=== PATIENT | female | born 1980 | race Caucasian/White ===

== ENCOUNTER 2020-05-03 18:17 | Emergency (ER) | payer SELFPAY ==
[~2020-05-03] VITALS: Ht 167.6 cm; Wt 72.7 kg
[2020-05-03 18:58] LABS: BASOPHILS % (AUTO) 0.8 % (0.0-2.0); EOSINOPHILS % (AUTO) 1.2 % (1.0-6.0); HEMATOCRIT 40.1 % (36-46); HEMOGLOBIN 13.7 g/dL (12.0-16.0); LYMPHOCYTES # (AUTO) 1.4 K/uL (1.0-4.8); LYMPHOCYTES % (AUTO) 24.9 % (22.0-44.0); MEAN CORPUSCULAR HEMOGLOBIN 32.3 pg (26.0-34.0); MEAN CORPUSCULAR HGB CONC 34.1 G/dL (31.0-37.0); MEAN CORPUSCULAR VOLUME 95 fL (80-100); MONOCYTES # (AUTO) 0.4 K/uL (0.1-1.0); MONOCYTES % (AUTO) 7.2 % (2.0-9.0); NEUTROPHILS # (AUTO) 3.7 K/uL (1.8-7.7); NEUTROPHILS % (AUTO) 65.9 % (40.0-70.0); PLATELET COUNT (AUTO) 167 K/uL (150-450); RED BLOOD CELL COUNT(AUTO) 4.23 MIL/uL (4.00-5.20); RED CELL DISTRIBUTION WIDTH 13.4 % (11.5-14.5)
[2020-05-03 19:13] LABS: ANION GAP 6 mmol/L (8-16); CALCIUM, TOTAL 9.2 mg/dL (8.8-10.5); CARBON DIOXIDE 27 mmol/L (22-29); CHLORIDE 106 mmol/L (98-107); CREATININE 0.94 mg/dL (0.60-1.30); GLOMERULAR FILTR. RATE CALC > 60 mL/min (>60); GLUCOSE,RANDOM 106 mg/dL (70-110); POTASSIUM 3.7 mmol/L (3.5-5.1); SODIUM SERUM 139 mmol/L (136-145); UREA NITROGEN, BLOOD 17 mg/dL (7-18)
[2020-05-03 19:24] LABS: ALANINE AMINOTRANSFERASE 49 U/L (12-78); ALKALINE PHOSPHATASE 76 U/L (46-116); ASPARTATE AMINOTRANSFERASE 21 U/L (15-37); BILIRUBIN,TOTAL 0.5 mg/dL (0.1-1.0); HCG,QUANTITATIVE < 1 mIU/mL (0-6); TOTAL PROTEIN, SERUM 7.6 g/dL (6.4-8.2)
[2020-05-03 20:40] VITALS: BP 123/76
== END 2020-05-03 21:02 | disposition home or self-care (01) ==
LOC: EMS 18:17
DX: R45.1 Restlessness and agitation (principal); F19.90 Other psychoactive substance use, unspecified, uncomplicated
CPT/HCPCS: 36415; 80053; 84702; 85025; 99283; G0480

== ENCOUNTER 2022-01-10 20:00 | Inpatient (IN) | payer MEDICAID ==
[~2022-01-10] VITALS: Ht 152.4 cm; Wt 55.2 kg
[2022-01-10 20:32] LABS: BASOPHILS % (AUTO) 1.5 % (0.0-2.0); EOSINOPHILS % (AUTO) 1.2 % (1.0-6.0); HEMATOCRIT 37.3 % (36-46); LYMPHOCYTES # (AUTO) 1.3 K/uL (1.0-4.8); LYMPHOCYTES % (AUTO) 22.6 % (22.0-44.0); MEAN CORPUSCULAR HEMOGLOBIN 32.2 pg (26.0-34.0); MEAN CORPUSCULAR HGB CONC 34.8 G/dL (31.0-37.0); MEAN CORPUSCULAR VOLUME 92 fL (80-100); MONOCYTES # (AUTO) 0.5 K/uL (0.1-1.0); NEUTROPHILS # (AUTO) 3.9 K/uL (1.8-7.7); NEUTROPHILS % (AUTO) 66.7 % (40.0-70.0); PLATELET COUNT (AUTO) 178 K/uL (150-450); RED BLOOD CELL COUNT(AUTO) 4.04 MIL/uL (4.00-5.20)
[2022-01-10 20:41] LABS: ANION GAP 7 mmol/L (8-16); CALCIUM, TOTAL 8.4 mg/dL (8.8-10.5); CARBON DIOXIDE 27 mmol/L (22-29); CHLORIDE 105 mmol/L (98-107); GLOMERULAR FILTR. RATE CALC 39 mL/min (>60); GLUCOSE,RANDOM 93 mg/dL (70-110); POTASSIUM 3.8 mmol/L (3.5-5.1); SODIUM SERUM 139 mmol/L (136-145); UREA NITROGEN, BLOOD 15 mg/dL (7-18)
[2022-01-10 20:58] LABS: ALANINE AMINOTRANSFERASE 76 U/L (12-78); ALBUMIN 3.5 g/dL (3.4-5.0); ALKALINE PHOSPHATASE 103 U/L (46-116); ASPARTATE AMINOTRANSFERASE 37 U/L (15-37); BILIRUBIN,TOTAL 0.2 mg/dL (0.1-1.0); HCG,QUANTITATIVE < 1 mIU/mL (0-6); TOTAL PROTEIN, SERUM 6.7 g/dL (6.4-8.2)
[2022-01-10] MEDS ORDERED: ZOLPIDEM TARTRATE 10 MG TABLET PO PRN (21:45)
[2022-01-10 22:23] LABS: COVID AG,FIA SOURCE NASAL SWAB
[2022-01-10] MEDS ORDERED: SODIUM CHLORIDE 0.9% 250 ML IRRIG SOLUTION BOTTLE IRRIG ONE (22:45)
[2022-01-10] MEDS ORDERED: PERTUSS(ACELL),DIPH,TET VAC/PF 0.5 ML SYRINGE IM. ONE (22:45)
[2022-01-10] MEDS: LORazepam 2 MG TABLET PO PRN (22:49)
[2022-01-10] MEDS ORDERED: HALOPERIDOL 5 MG TABLET PO ONE (23:00)
[2022-01-10] MEDS ORDERED: DiphenhydrAMINE HCL 50 MG CAPSULE PO ONE (23:00)
[2022-01-11 00:40] VITALS: BP 105/56
[2022-01-11] MEDS: BACITRACIN 28 GM OINTMENT TP SCH ×2 (09:48→17:00)
[2022-01-11] MEDS: NICOTINE 14 MG/24 HOUR PATCH TD SCH (09:49)
[2022-01-11] MEDS: FLUoxetine HCL 20 MG CAPSULE PO SCH (11:00)
[2022-01-11] MEDS: QUEtiapine FUMARATE 25 MG TABLET PO SCH ×2 (11:00→17:10)
[2022-01-11] MEDS ORDERED: ACETAMINOPHEN 325 MG TABLET PO PRN (14:30)
[2022-01-11] MEDS ORDERED: IBUPROFEN 400 MG TABLET PO PRN (14:30)
[2022-01-11] MEDS ORDERED: DOCUSATE SODIUM 100 MG CAPSULE PO PRN (14:30)
[2022-01-11] MEDS ORDERED: MAG HYDROX/AL HYDROX/SIMETH ES 30 ML SUSPENSION UDCUP PO PRN (14:30)
[2022-01-11] MEDS ORDERED: ALBUTEROL SULFATE HFA 90 MCG/PUFF 8 GM INHALER IH PRN (14:30)
[2022-01-11] MEDS ORDERED: MAGNESIUM HYDROXIDE SUSPENSION 30 ML UDCUP PO PRN (14:30)
[2022-01-11] MEDS ORDERED: ONDANSETRON HCL 4 MG TABLET PO PRN (14:30)
[2022-01-11] MEDS ORDERED: LOPERAMIDE HCL 2 MG CAPSULE PO PRN (14:30)
[2022-01-11] MEDS ORDERED: CloNIDine HCL 0.1 MG TABLET PO PRN (14:30)
[2022-01-11] MEDS ORDERED: NICOTINE 14 MG/24 HOUR PATCH TD PRN (14:30)
[2022-01-11] MEDS ORDERED: GuaiFENesin/D-METHORPHAN [SUGAR-FREE] 200-20MG/10 ML SYRUP UDCUP PO PRN (14:30)
[2022-01-11] MEDS ORDERED: PETROLATUM,WHITE 28 GM JELLY TP PRN (14:30)
[2022-01-11] MEDS: LORazepam 2 MG TABLET PO PRN (16:15)
[2022-01-11] MEDS: HALOPERIDOL 5 MG TABLET PO PRN (16:15)
[2022-01-12] MEDS: QUEtiapine FUMARATE 25 MG TABLET PO SCH ×2 (08:13→15:59)
[2022-01-12] MEDS: FLUoxetine HCL 20 MG CAPSULE PO SCH (08:13)
[2022-01-12] MEDS: NICOTINE 14 MG/24 HOUR PATCH TD SCH (08:14)
[2022-01-12] MEDS: BACITRACIN 28 GM OINTMENT TP SCH ×2 (08:19→15:59)
[2022-01-12 16:28] VITALS: BP 91/64
[2022-01-12 18:46] VITALS: BP 98/65
[2022-01-12] MEDS: HALOPERIDOL 5 MG TABLET PO PRN (20:07)
[2022-01-13] MEDS: NICOTINE 14 MG/24 HOUR PATCH TD SCH (08:04)
[2022-01-13] MEDS: QUEtiapine FUMARATE 25 MG TABLET PO SCH ×2 (08:04→15:58)
[2022-01-13] MEDS: FLUoxetine HCL 20 MG CAPSULE PO SCH (08:04)
[2022-01-13] MEDS: BACITRACIN 28 GM OINTMENT TP SCH ×2 (08:05→15:55)
[2022-01-13 08:26] VITALS: BP 101/68
[2022-01-13 16:50] VITALS: BP 113/76
[2022-01-14] MEDS: QUEtiapine FUMARATE 25 MG TABLET PO SCH ×2 (08:20→15:56)
[2022-01-14] MEDS: NICOTINE 14 MG/24 HOUR PATCH TD SCH (08:20)
[2022-01-14] MEDS: FLUoxetine HCL 20 MG CAPSULE PO SCH (08:20)
[2022-01-14] MEDS: HALOPERIDOL 5 MG TABLET PO PRN (08:21)
[2022-01-14] MEDS: BACITRACIN 28 GM OINTMENT TP SCH ×2 (08:21→15:57)
[2022-01-14 09:46] VITALS: BP 115/69
[2022-01-14 16:10] VITALS: BP 100/60
[2022-01-15] MEDS: QUEtiapine FUMARATE 25 MG TABLET PO SCH ×2 (08:16→16:09)
[2022-01-15] MEDS: FLUoxetine HCL 20 MG CAPSULE PO SCH (08:16)
[2022-01-15] MEDS: NICOTINE 14 MG/24 HOUR PATCH TD SCH (08:21)
[2022-01-15 08:40] VITALS: BP 94/64
[2022-01-15 16:15] VITALS: BP 106/76
[2022-01-16 07:15] LABS: COVID AG,FIA SOURCE NASAL SWAB
[2022-01-16 08:27] VITALS: BP 100/70
[2022-01-16] MEDS: QUEtiapine FUMARATE 25 MG TABLET PO SCH ×2 (08:57→17:00)
[2022-01-16] MEDS: NICOTINE 14 MG/24 HOUR PATCH TD SCH (08:57)
[2022-01-16] MEDS: FLUoxetine HCL 20 MG CAPSULE PO SCH (08:57)
[2022-01-16] MEDS: LORazepam 2 MG TABLET PO PRN (16:30)
[2022-01-16] MEDS: HALOPERIDOL 5 MG TABLET PO PRN (16:30)
[2022-01-16 17:18] VITALS: BP 101/62
[2022-01-17 08:00] VITALS: BP 96/61
[2022-01-17] MEDS: HALOPERIDOL 5 MG TABLET PO PRN (08:01)
[2022-01-17] MEDS: FLUoxetine HCL 20 MG CAPSULE PO SCH (08:01)
[2022-01-17] MEDS: QUEtiapine FUMARATE 25 MG TABLET PO SCH ×2 (08:01→16:18)
[2022-01-17] MEDS: LORazepam 2 MG TABLET PO PRN (08:01)
[2022-01-17] MEDS: NICOTINE 14 MG/24 HOUR PATCH TD SCH (08:02)
[2022-01-18] MEDS: LORazepam 2 MG TABLET PO PRN (08:04)
[2022-01-18] MEDS: NICOTINE 14 MG/24 HOUR PATCH TD SCH (08:04)
[2022-01-18] MEDS: QUEtiapine FUMARATE 25 MG TABLET PO SCH ×2 (08:04→16:20)
[2022-01-18] MEDS: HALOPERIDOL 5 MG TABLET PO PRN (08:04)
[2022-01-18] MEDS: FLUoxetine HCL 20 MG CAPSULE PO SCH (08:04)
[2022-01-18 08:23] VITALS: BP 93/61
[2022-01-19 09:00] VITALS: BP 115/65
[2022-01-19] MEDS: LORazepam 2 MG TABLET PO PRN (09:01)
[2022-01-19] MEDS: QUEtiapine FUMARATE 25 MG TABLET PO SCH (09:02)
[2022-01-19] MEDS: FLUoxetine HCL 20 MG CAPSULE PO SCH (09:02)
[2022-01-19 09:10] VITALS: BP 94/61
[2022-01-19] MEDS: NICOTINE 14 MG/24 HOUR PATCH TD SCH (09:15)
[2022-01-19] MEDS ORDERED: PROZ20 PO (13:46)
[2022-01-19] MEDS ORDERED: QUET25TA36 PO (13:46)
[2022-01-19 15:15] VITALS: BP 100/66
== END 2022-01-19 15:30 | disposition home or self-care (01) | DRG 750 ==
LOC: EDUNIT# 20:00 → EMS 20:02 → 3EC 23:00 → UNDOADMIN 23:00
PROVIDERS: ADMIT Psychiatry & Neurology Child & Adolescent Psychiatry; ATTEND Psychiatry & Neurology Child & Adolescent Psychiatry
DX: F20.9 Schizophrenia, unspecified (principal); N17.9 Acute kidney failure, unspecified; E83.51 Hypocalcemia; Z20.822 Contact with and (suspected) exposure to COVID-19; F32.A Depression, unspecified; F15.10 Other stimulant abuse, uncomplicated; F99 Mental disorder, not otherwise specified; R45.851 Suicidal ideations; Z59.00 Homelessness unspecified
CPT/HCPCS: 80053; 84702; 85025; 90715; 99285; G0480

== ENCOUNTER 2023-02-13 20:18 | Inpatient (IN) | payer MEDICAID, OTHER ==
[~2023-02-13] VITALS: Ht 160 cm; Wt 66.7 kg
[~2023-02-13 20:18] MED LIST: PROZ20 PO; QUET25TA36 PO
[2023-02-13 21:16] LABS: BASOPHILS % (AUTO) 1.1 % (0.0-2.0); EOSINOPHILS % (AUTO) 1.8 % (1.0-6.0); HEMATOCRIT 38.1 % (36-46); HEMOGLOBIN 12.8 g/dL (12.0-16.0); LYMPHOCYTES # (AUTO) 1.3 K/uL (1.0-4.8); LYMPHOCYTES % (AUTO) 31.2 % (22.0-44.0); MEAN CORPUSCULAR HEMOGLOBIN 31.1 pg (26.0-34.0); MEAN CORPUSCULAR HGB CONC 33.5 G/dL (31.0-37.0); MEAN CORPUSCULAR VOLUME 93 fL (80-100); MONOCYTES # (AUTO) 0.3 K/uL (0.1-1.0); MONOCYTES % (AUTO) 8.2 % (2.0-9.0); NEUTROPHILS # (AUTO) 2.4 K/uL (1.8-7.7); NEUTROPHILS % (AUTO) 57.7 % (40.0-70.0); PLATELET COUNT (AUTO) 206 K/uL (150-450); RED BLOOD CELL COUNT(AUTO) 4.11 MIL/uL (4.00-5.20); RED CELL DISTRIBUTION WIDTH 13.3 % (11.5-14.5)
[2023-02-13 21:22] LABS: ANION GAP 7 mmol/L (8-16); CARBON DIOXIDE 28 mmol/L (22-29); CHLORIDE 104 mmol/L (98-107); CREATININE 0.85 mg/dL (0.60-1.30); GLOMERULAR FILTR. RATE CALC > 60 mL/min (>60); GLUCOSE,RANDOM 82 mg/dL (70-110); POTASSIUM 3.6 mmol/L (3.5-5.1); SODIUM SERUM 139 mmol/L (136-145)
[2023-02-13 21:27] LABS: ALANINE AMINOTRANSFERASE 141 U/L (12-78); ALBUMIN 3.8 g/dL (3.4-5.0); ALKALINE PHOSPHATASE 110 U/L (46-116); ASPARTATE AMINOTRANSFERASE 70 U/L (15-37); BILIRUBIN,TOTAL 0.3 mg/dL (0.1-1.0); TOTAL PROTEIN, SERUM 7.9 g/dL (6.4-8.2)
[2023-02-13 21:56] LABS: COVID AG,FIA SOURCE NASOPHARYNGEAL
[2023-02-13] MEDS ORDERED: HALOPERIDOL 5 MG TABLET PO ONE (22:15)
[2023-02-14] MEDS ORDERED: ZOLPIDEM TARTRATE 10 MG TABLET PO PRN (01:00)
[2023-02-14 03:34] VITALS: BP 110/80
[2023-02-14] MEDS ORDERED: IBUPROFEN 400 MG TABLET PO PRN (06:45)
[2023-02-14] MEDS ORDERED: NICOTINE 14 MG/24 HOUR PATCH TD PRN (06:45)
[2023-02-14] MEDS ORDERED: MAGNESIUM HYDROXIDE SUSPENSION 30 ML UDCUP PO PRN (06:45)
[2023-02-14] MEDS ORDERED: LOPERAMIDE HCL 2 MG CAPSULE PO PRN (06:45)
[2023-02-14] MEDS ORDERED: ACETAMINOPHEN 325 MG TABLET PO PRN (06:45)
[2023-02-14] MEDS ORDERED: CloNIDine HCL 0.1 MG TABLET PO PRN (06:45)
[2023-02-14] MEDS ORDERED: ONDANSETRON HCL 4 MG TABLET PO PRN (06:45)
[2023-02-14] MEDS ORDERED: MAG HYDROX/AL HYDROX/SIMETH ES 30 ML SUSPENSION UDCUP PO PRN (06:45)
[2023-02-14] MEDS ORDERED: DOCUSATE SODIUM 100 MG CAPSULE PO PRN (06:45)
[2023-02-14] MEDS ORDERED: PETROLATUM,WHITE 28 GM JELLY TP PRN (06:45)
[2023-02-14] MEDS ORDERED: GuaiFENesin/D-METHORPHAN [SUGAR-FREE] 200-20MG/10 ML SYRUP UDCUP PO PRN (06:45)
[2023-02-14] MEDS ORDERED: ALBUTEROL SULFATE HFA 90 MCG/PUFF 8 GM INHALER IH PRN (06:45)
[2023-02-14 09:57] VITALS: BP 104/68
[2023-02-14] MEDS: FLUoxetine HCL 20 MG CAPSULE PO SCH (15:13)
[2023-02-14] MEDS: QUEtiapine FUMARATE 25 MG TABLET PO SCH (16:42)
[2023-02-15] MEDS: QUEtiapine FUMARATE 25 MG TABLET PO SCH ×2 (08:50→16:43)
[2023-02-15] MEDS: FLUoxetine HCL 20 MG CAPSULE PO SCH (08:50)
[2023-02-15 11:08] VITALS: BP 153/87
[2023-02-15 21:36] VITALS: BP 99/70
[2023-02-16 08:00] VITALS: BP 113/69
[2023-02-16] MEDS: QUEtiapine FUMARATE 25 MG TABLET PO SCH ×3 (08:52→16:47)
[2023-02-16] MEDS: FLUoxetine HCL 20 MG CAPSULE PO SCH ×2 (08:52→09:00)
[2023-02-16 20:29] VITALS: BP 102/65
[2023-02-17 08:39] VITALS: BP 100/67
[2023-02-17] MEDS: FLUoxetine HCL 20 MG CAPSULE PO SCH (08:52)
[2023-02-17] MEDS: QUEtiapine FUMARATE 25 MG TABLET PO SCH ×2 (08:53→17:18)
[2023-02-17 21:40] VITALS: BP 98/65
[2023-02-18] MEDS: QUEtiapine FUMARATE 25 MG TABLET PO SCH ×2 (08:41→16:48)
[2023-02-18] MEDS: FLUoxetine HCL 20 MG CAPSULE PO SCH (08:41)
[2023-02-18 11:31] VITALS: BP 104/70
[2023-02-18 21:17] VITALS: BP 128/76
[2023-02-19 08:00] VITALS: BP 115/78
[2023-02-19] MEDS: FLUoxetine HCL 20 MG CAPSULE PO SCH (08:17)
[2023-02-19] MEDS: QUEtiapine FUMARATE 25 MG TABLET PO SCH ×2 (08:17→16:02)
[2023-02-19] MEDS: LORazepam 2 MG TABLET PO PRN (13:48)
[2023-02-19] MEDS: HALOPERIDOL 5 MG TABLET PO PRN (13:49)
[2023-02-20 09:37] VITALS: BP 106/73
[2023-02-20] MEDS: QUEtiapine FUMARATE 25 MG TABLET PO SCH ×2 (10:25→17:13)
[2023-02-20] MEDS: FLUoxetine HCL 20 MG CAPSULE PO SCH (10:25)
[2023-02-20 22:26] VITALS: BP 118/78
[2023-02-21] MEDS: QUEtiapine FUMARATE 25 MG TABLET PO SCH (08:29)
[2023-02-21] MEDS: FLUoxetine HCL 20 MG CAPSULE PO SCH (08:29)
[2023-02-21 09:44] VITALS: BP 120/71
[2023-02-21] MEDS: QUEtiapine FUMARATE 100 MG TABLET PO SCH (20:36)
[2023-02-21 21:18] VITALS: BP 96/64
[2023-02-22] MEDS: FLUoxetine HCL 20 MG CAPSULE PO SCH (08:27)
[2023-02-22] MEDS: QUEtiapine FUMARATE 25 MG TABLET PO SCH (08:28)
[2023-02-22 09:23] VITALS: BP 96/63
[2023-02-22 20:35] VITALS: BP 110/74
[2023-02-22] MEDS: QUEtiapine FUMARATE 100 MG TABLET PO SCH (20:52)
[2023-02-22] MEDS: LORazepam 2 MG TABLET PO PRN (20:52)
[2023-02-23 08:00] VITALS: BP 99/66
[2023-02-23] MEDS: QUEtiapine FUMARATE 25 MG TABLET PO SCH (08:44)
[2023-02-23] MEDS: FLUoxetine HCL 20 MG CAPSULE PO SCH (08:44)
[2023-02-23] MEDS: QUEtiapine FUMARATE 100 MG TABLET PO SCH (20:38)
[2023-02-23 20:42] VITALS: BP 108/70
[2023-02-24] MEDS: QUEtiapine FUMARATE 25 MG TABLET PO SCH (08:41)
[2023-02-24] MEDS: FLUoxetine HCL 20 MG CAPSULE PO SCH (08:41)
[2023-02-24 08:58] VITALS: BP 108/74
[2023-02-24] MEDS: QUEtiapine FUMARATE 100 MG TABLET PO SCH (20:36)
[2023-02-24 20:59] VITALS: BP 117/63
[2023-02-24] MEDS: HALOPERIDOL 5 MG TABLET PO PRN (22:05)
[2023-02-24] MEDS: LORazepam 2 MG TABLET PO PRN (22:05)
[2023-02-25 08:08] LABS: ALANINE AMINOTRANSFERASE 203 U/L (12-78); ALBUMIN 3.6 g/dL (3.4-5.0); ALKALINE PHOSPHATASE 69 U/L (46-116); ANION GAP 9 mmol/L (8-16); ASPARTATE AMINOTRANSFERASE 94 U/L (15-37); BILIRUBIN,TOTAL 0.4 mg/dL (0.1-1.0); CARBON DIOXIDE 26 mmol/L (22-29); CHLORIDE 102 mmol/L (98-107); GLOMERULAR FILTR. RATE CALC > 60 mL/min (>60); GLUCOSE,RANDOM 97 mg/dL (70-110); POTASSIUM 4.2 mmol/L (3.5-5.1); SODIUM SERUM 137 mmol/L (136-145); TOTAL PROTEIN, SERUM 7.6 g/dL (6.4-8.2)
[2023-02-25] MEDS: FLUoxetine HCL 20 MG CAPSULE PO SCH (09:12)
[2023-02-25] MEDS: QUEtiapine FUMARATE 25 MG TABLET PO SCH (09:13)
[2023-02-25 09:18] VITALS: BP 117/77
[2023-02-25] MEDS: QUEtiapine FUMARATE 100 MG TABLET PO SCH (21:11)
[2023-02-26] MEDS: QUEtiapine FUMARATE 25 MG TABLET PO SCH (08:30)
[2023-02-26] MEDS: FLUoxetine HCL 20 MG CAPSULE PO SCH (08:30)
[2023-02-26 10:35] VITALS: BP 102/67
[2023-02-26] MEDS: QUEtiapine FUMARATE 100 MG TABLET PO SCH (21:10)
[2023-02-26 21:11] VITALS: BP 104/68
[2023-02-27 08:00] VITALS: BP 91/60
[2023-02-27] MEDS: FLUoxetine HCL 20 MG CAPSULE PO SCH (08:56)
[2023-02-27] MEDS: QUEtiapine FUMARATE 25 MG TABLET PO SCH (08:57)
[2023-02-27] MEDS: QUEtiapine FUMARATE 100 MG TABLET PO SCH (20:45)
[2023-02-27 21:48] VITALS: BP 96/60
[2023-02-28] MEDS: FLUoxetine HCL 20 MG CAPSULE PO SCH (08:33)
[2023-02-28] MEDS: QUEtiapine FUMARATE 25 MG TABLET PO SCH (08:33)
[2023-02-28 08:51] VITALS: BP 97/61
[2023-02-28] MEDS: QUEtiapine FUMARATE 100 MG TABLET PO SCH (20:25)
[2023-02-28 21:27] VITALS: BP 107/73
[2023-03-01] MEDS: QUEtiapine FUMARATE 25 MG TABLET PO SCH (08:26)
[2023-03-01] MEDS: FLUoxetine HCL 20 MG CAPSULE PO SCH (08:26)
[2023-03-01 09:03] VITALS: BP 94/63
[2023-03-01] MEDS ORDERED: FLUO20CA36 PO ×2 (16:22→18:07)
[2023-03-01] MEDS ORDERED: QUET25TA PO (16:22)
[2023-03-01] MEDS ORDERED: QUET100T PO (16:22)
[2023-03-01] MEDS ORDERED: QUET100T34 PO (18:07)
[2023-03-01] MEDS ORDERED: QUET25TA36 PO (18:07)
== END 2023-03-01 18:00 | disposition home or self-care (01) | DRG 750 ==
LOC: EMS 20:18 → 3EI 02-14 00:07
PROVIDERS: ADMIT Psychiatry & Neurology Child & Adolescent Psychiatry; ATTEND Psychiatry & Neurology Child & Adolescent Psychiatry
DX: F25.9 Schizoaffective disorder, unspecified (principal); R45.851 Suicidal ideations; Z91.199 Patient's noncompliance with other medical treatment and regimen due to unspecified reason; D72.819 Decreased white blood cell count, unspecified; F15.90 Other stimulant use, unspecified, uncomplicated; F32.9 Major depressive disorder, single episode, unspecified; G47.00 Insomnia, unspecified; Z20.822 Contact with and (suspected) exposure to COVID-19
CPT/HCPCS: 80053; 84703; 85025; 99285; G0480

== ENCOUNTER 2023-03-19 08:05 | Inpatient (IN) | payer MEDICAID, OTHER ==
[~2023-03-19] VITALS: Ht 160 cm; Wt 59.9 kg
[~2023-03-19 08:05] MED LIST changes: +FLUO20CA36 PO; -PROZ20 PO; +QUET100T PO; +QUET100T34 PO; +QUET25TA PO
[2023-03-19 08:44] LABS: COVID AG,FIA SOURCE NASOPHARYNGEAL
[2023-03-19 08:46] LABS: BASOPHILS % (AUTO) 1.9 % (0.0-2.0); EOSINOPHILS % (AUTO) 2.1 % (1.0-6.0); HEMATOCRIT 37.6 % (36-46); HEMOGLOBIN 13.2 g/dL (12.0-16.0); LYMPHOCYTES # (AUTO) 1.2 K/uL (1.0-4.8); LYMPHOCYTES % (AUTO) 30.2 % (22.0-44.0); MEAN CORPUSCULAR HEMOGLOBIN 31.9 pg (26.0-34.0); MEAN CORPUSCULAR HGB CONC 35.2 G/dL (31.0-37.0); MEAN CORPUSCULAR VOLUME 91 fL (80-100); MONOCYTES # (AUTO) 0.3 K/uL (0.1-1.0); MONOCYTES % (AUTO) 8.9 % (2.0-9.0); NEUTROPHILS # (AUTO) 2.2 K/uL (1.8-7.7); NEUTROPHILS % (AUTO) 56.9 % (40.0-70.0); PLATELET COUNT (AUTO) 169 K/uL (150-450); RED BLOOD CELL COUNT(AUTO) 4.14 MIL/uL (4.00-5.20); RED CELL DISTRIBUTION WIDTH 13.4 % (11.5-14.5)
[2023-03-19 08:56] LABS: ANION GAP 7 mmol/L (8-16); CARBON DIOXIDE 25 mmol/L (22-29); CHLORIDE 105 mmol/L (98-107); GLOMERULAR FILTR. RATE CALC > 60 mL/min (>60); GLUCOSE,RANDOM 100 mg/dL (70-110); POTASSIUM 3.7 mmol/L (3.5-5.1); SODIUM SERUM 137 mmol/L (136-145)
[2023-03-19] MEDS ORDERED: LORazepam 2 MG TABLET PO PRN (09:00)
[2023-03-19] MEDS ORDERED: OLANZapine 5 MG RAPDIS TABLET PO PRN (09:00)
[2023-03-19] MEDS ORDERED: ZOLPIDEM TARTRATE 10 MG TABLET PO PRN (09:00)
[2023-03-19 09:04] LABS: ALANINE AMINOTRANSFERASE 271 U/L (12-78); ALBUMIN 3.7 g/dL (3.4-5.0); ALKALINE PHOSPHATASE 91 U/L (46-116); ASPARTATE AMINOTRANSFERASE 143 U/L (15-37); BILIRUBIN,TOTAL 0.5 mg/dL (0.1-1.0)
[2023-03-19] MEDS ORDERED: MAG HYDROX/AL HYDROX/SIMETH ES 30 ML SUSPENSION UDCUP PO PRN (12:30)
[2023-03-19] MEDS ORDERED: GuaiFENesin/D-METHORPHAN [SUGAR-FREE] 200-20MG/10 ML SYRUP UDCUP PO PRN (12:30)
[2023-03-19] MEDS ORDERED: MAGNESIUM HYDROXIDE SUSPENSION 30 ML UDCUP PO PRN (12:30)
[2023-03-19] MEDS ORDERED: PETROLATUM,WHITE 28 GM JELLY TP PRN (12:30)
[2023-03-19] MEDS ORDERED: ALBUTEROL SULFATE HFA 90 MCG/PUFF 8 GM INHALER IH PRN (12:30)
[2023-03-19] MEDS ORDERED: CloNIDine HCL 0.1 MG TABLET PO PRN (12:30)
[2023-03-19] MEDS ORDERED: ONDANSETRON HCL 4 MG TABLET PO PRN (12:30)
[2023-03-19] MEDS ORDERED: LOPERAMIDE HCL 2 MG CAPSULE PO PRN (12:30)
[2023-03-19] MEDS ORDERED: NICOTINE 14 MG/24 HOUR PATCH TD PRN (12:30)
[2023-03-19] MEDS ORDERED: ACETAMINOPHEN 325 MG TABLET PO PRN (12:30)
[2023-03-19] MEDS ORDERED: DOCUSATE SODIUM 100 MG CAPSULE PO PRN (12:30)
[2023-03-19 16:47] LABS: APPEARANCE,URINE CLEAR (CLEAR); BILIRUBIN,URINE NEGATIVE (NEGATIVE); GLUCOSE, URINE (UA) NEGATIVE (NEGATIVE); KETONES,URINE NEGATIVE (NEGATIVE); LEUKOCYTE ESTERASE ,URINE NEGATIVE (NEGATIVE); NITRATE,URINE NEGATIVE (NEGATIVE); OCCULT BLOOD,URINE NEGATIVE (NEGATIVE); PROTEIN,URINE TRACE mg/dL (NEGATIVE); SPECIFIC GRAVITIY, URINE 1.033 (1.003-1.030)
[2023-03-19 16:53] LABS: AMPHET/METH SCREEN,URINE NEGATIVE (NEGATIVE); BARBITURATE SCREEN, URINE NEGATIVE (NEGATIVE); BENZODIAZEPINES SCREEN,URINE NEGATIVE (NEGATIVE); CANNABINOID SCREEN,URINE NEGATIVE (NEGATIVE); COCAINE SCREEN,URINE NEGATIVE (NEGATIVE); METHADONE SCREEN, URINE NEGATIVE (NEGATIVE); OPIATE SCREEN,URINE NEGATIVE (NEGATIVE); PHENCYCLIDINE SCREEN,URINE NEGATIVE (NEGATIVE)
[2023-03-19 17:25] VITALS: BP 108/85; PULSE 70; RESP 18; TEMP 98.2; O2SAT 98
[2023-03-19 20:43] VITALS: BP 104/63; PULSE 82; RESP 19; TEMP 97.8; O2SAT 97
[2023-03-20 03:29] VITALS: BP 105/70; PULSE 85; RESP 18; TEMP 97.6; O2SAT 98
[2023-03-20 03:36] VITALS: BP 106/70; PULSE 85; RESP 18; TEMP 97.6
[2023-03-20 08:27] LABS: HEMOGLOBIN A1C 4.7 % (3.8-5.6)
[2023-03-20 08:34] LABS: CHOL/HDL RATIO 2.3 (3.9-5.7); THYROID STIMULATING HORMONE 2.01 uIU/mL (0.36-3.74)
[2023-03-20 08:37] VITALS: BP 109/73; PULSE 76; RESP 16; TEMP 98; O2SAT 98
[2023-03-20] MEDS: FLUoxetine HCL 20 MG CAPSULE PO SCH (13:26)
[2023-03-20] MEDS: QUEtiapine FUMARATE 25 MG TABLET PO SCH (18:00)
[2023-03-20] MEDS: QUEtiapine FUMARATE 100 MG TABLET PO SCH (20:53)
[2023-03-20] MEDS: ZOLPIDEM TARTRATE 10 MG TABLET PO PRN (22:53)
[2023-03-20] MEDS: LORazepam 2 MG TABLET PO PRN (22:53)
[2023-03-20 23:05] VITALS: BP 117/69; PULSE 74; RESP 18; TEMP 98; O2SAT 96
[2023-03-21] MEDS: QUEtiapine FUMARATE 25 MG TABLET PO SCH ×2 (08:37→17:19)
[2023-03-21] MEDS: FLUoxetine HCL 20 MG CAPSULE PO SCH (08:37)
[2023-03-21] MEDS: LORazepam 2 MG TABLET PO PRN (08:37)
[2023-03-21 08:39] VITALS: RESP 18
[2023-03-21] MEDS: QUEtiapine FUMARATE 100 MG TABLET PO SCH (20:10)
[2023-03-21] MEDS: ZOLPIDEM TARTRATE 10 MG TABLET PO PRN (20:12)
[2023-03-21 20:36] VITALS: BP 104/59; PULSE 77; RESP 18; TEMP 98; O2SAT 97
[2023-03-22] MEDS: FLUoxetine HCL 20 MG CAPSULE PO SCH (08:14)
[2023-03-22] MEDS: QUEtiapine FUMARATE 25 MG TABLET PO SCH ×2 (08:16→16:53)
[2023-03-22 09:03] VITALS: BP 105/71; PULSE 89; RESP 17; TEMP 97.7; O2SAT 96
[2023-03-22] MEDS ORDERED: LORazepam 2 MG/ML VIAL ONE (11:04)
[2023-03-22] MEDS ORDERED: DiphenhydrAMINE HCL 50 MG/ML VIAL ONE (11:04)
[2023-03-22] MEDS ORDERED: HALOPERIDOL LACTATE 5 MG/ML VIAL ONE (11:04)
[2023-03-22] MEDS ORDERED: LORazepam 2 MG/ML VIAL IM ONE (11:45)
[2023-03-22] MEDS ORDERED: DiphenhydrAMINE HCL 50 MG/ML VIAL IM ONE (11:45)
[2023-03-22] MEDS ORDERED: HALOPERIDOL LACTATE 5 MG/ML VIAL IM ONE (11:45)
[2023-03-22] MEDS ORDERED: NEOMYCIN/POLYMYXIN B/GRAMICIDIN 10 ML OPHTHALMIC SOLUTION OD SCH (12:00)
[2023-03-22] MEDS: NEOMYCIN/POLYMYXIN B/GRAMICIDIN 10 ML OPHTHALMIC SOLUTION OD SCH (17:00)
[2023-03-22 20:03] VITALS: BP 106/60; PULSE 84; RESP 17; TEMP 97.6
[2023-03-22] MEDS: QUEtiapine FUMARATE 100 MG TABLET PO SCH (20:10)
[2023-03-22] MEDS: ZOLPIDEM TARTRATE 10 MG TABLET PO PRN (20:13)
[2023-03-23 08:06] LABS: HEPATITIS C AB (EIA) Reactive (Non Reactive); HEPATITIS C RT-PCR,QNT 583000 IU/mL
[2023-03-23] MEDS: FLUoxetine HCL 20 MG CAPSULE PO SCH (08:18)
[2023-03-23] MEDS: NEOMYCIN/POLYMYXIN B/GRAMICIDIN 10 ML OPHTHALMIC SOLUTION OD SCH ×2 (08:18→16:06)
[2023-03-23] MEDS: HALOPERIDOL 5 MG TABLET PO PRN (08:18)
[2023-03-23] MEDS: QUEtiapine FUMARATE 25 MG TABLET PO SCH ×2 (08:23→16:06)
[2023-03-23 08:24] VITALS: PULSE 84; RESP 17; TEMP 97.3; O2SAT 96
[2023-03-23 20:10] VITALS: BP 107/69; PULSE 80; RESP 19; TEMP 98.1; O2SAT 98
[2023-03-23] MEDS: ZOLPIDEM TARTRATE 10 MG TABLET PO PRN (20:14)
[2023-03-23] MEDS: QUEtiapine FUMARATE 100 MG TABLET PO SCH (20:14)
[2023-03-24 08:11] VITALS: BP 106/77; PULSE 92; RESP 16; TEMP 97.9; O2SAT 98
[2023-03-24] MEDS: QUEtiapine FUMARATE 25 MG TABLET PO SCH ×2 (08:21→16:15)
[2023-03-24] MEDS: NEOMYCIN/POLYMYXIN B/GRAMICIDIN 10 ML OPHTHALMIC SOLUTION OD SCH ×2 (08:21→16:15)
[2023-03-24] MEDS: FLUoxetine HCL 20 MG CAPSULE PO SCH (08:21)
[2023-03-24] MEDS: LORazepam 2 MG TABLET PO PRN (20:03)
[2023-03-24] MEDS: QUEtiapine FUMARATE 100 MG TABLET PO SCH (20:03)
[2023-03-24 20:14] VITALS: BP 103/64; PULSE 78; RESP 18; TEMP 98.1; O2SAT 96
[2023-03-25] MEDS: FLUoxetine HCL 20 MG CAPSULE PO SCH (08:30)
[2023-03-25] MEDS: NEOMYCIN/POLYMYXIN B/GRAMICIDIN 10 ML OPHTHALMIC SOLUTION OD SCH ×2 (08:30→16:29)
[2023-03-25] MEDS: QUEtiapine FUMARATE 25 MG TABLET PO SCH ×2 (08:30→16:24)
[2023-03-25 08:45] VITALS: BP 105/66; PULSE 100; RESP 16; TEMP 97.9; O2SAT 96
[2023-03-25] MEDS: QUEtiapine FUMARATE 100 MG TABLET PO SCH (20:41)
[2023-03-25 21:06] VITALS: BP 110/68; PULSE 95; RESP 17; TEMP 98; O2SAT 97
[2023-03-26] MEDS: FLUoxetine HCL 20 MG CAPSULE PO SCH (08:05)
[2023-03-26] MEDS: QUEtiapine FUMARATE 25 MG TABLET PO SCH ×2 (08:05→16:47)
[2023-03-26] MEDS: NEOMYCIN/POLYMYXIN B/GRAMICIDIN 10 ML OPHTHALMIC SOLUTION OD SCH ×2 (08:06→16:47)
[2023-03-26 08:53] VITALS: BP 100/61; PULSE 86; RESP 16; TEMP 98; O2SAT 97
[2023-03-26] MEDS: QUEtiapine FUMARATE 100 MG TABLET PO SCH (20:13)
[2023-03-26 20:22] VITALS: BP 107/65; PULSE 82; RESP 18; TEMP 97.7; O2SAT 97
[2023-03-27] MEDS: NEOMYCIN/POLYMYXIN B/GRAMICIDIN 10 ML OPHTHALMIC SOLUTION OD SCH (08:12)
[2023-03-27] MEDS: FLUoxetine HCL 20 MG CAPSULE PO SCH (08:12)
[2023-03-27] MEDS: QUEtiapine FUMARATE 25 MG TABLET PO SCH ×2 (08:12→16:40)
[2023-03-27 08:51] VITALS: BP 111/74; PULSE 82; RESP 17; TEMP 97.1; O2SAT 99
[2023-03-27] MEDS: QUEtiapine FUMARATE 100 MG TABLET PO SCH (20:09)
[2023-03-27 20:25] VITALS: BP 118/72; PULSE 80; RESP 18; TEMP 97.8; O2SAT 98
[2023-03-28] MEDS: FLUoxetine HCL 20 MG CAPSULE PO SCH (08:07)
[2023-03-28] MEDS: QUEtiapine FUMARATE 25 MG TABLET PO SCH ×2 (08:15→16:30)
[2023-03-28 08:28] VITALS: BP 105/76; PULSE 86; RESP 18; TEMP 97.8; O2SAT 98
[2023-03-28 20:12] VITALS: BP 151/86; PULSE 88; RESP 20; TEMP 97.7; O2SAT 98
[2023-03-28 20:14] VITALS: BP 106/63; PULSE 83; RESP 20; TEMP 98; O2SAT 97
[2023-03-28] MEDS: IBUPROFEN 400 MG TABLET PO PRN (20:26)
[2023-03-28] MEDS: QUEtiapine FUMARATE 100 MG TABLET PO SCH (20:26)
[2023-03-29] MEDS: FLUoxetine HCL 20 MG CAPSULE PO SCH (08:02)
[2023-03-29] MEDS: HALOPERIDOL 5 MG TABLET PO PRN ×2 (08:03→20:52)
[2023-03-29] MEDS: LORazepam 2 MG TABLET PO PRN (08:03)
[2023-03-29] MEDS: QUEtiapine FUMARATE 25 MG TABLET PO SCH ×2 (08:05→16:30)
[2023-03-29 08:15] VITALS: BP 103/63; PULSE 74; RESP 16; TEMP 97.9; O2SAT 98
[2023-03-29 20:15] VITALS: BP 102/58; PULSE 72; RESP 18; TEMP 97.2; O2SAT 96
[2023-03-29] MEDS: QUEtiapine FUMARATE 100 MG TABLET PO SCH (20:52)
[2023-03-30] MEDS: FLUoxetine HCL 20 MG CAPSULE PO SCH (08:06)
[2023-03-30] MEDS: QUEtiapine FUMARATE 25 MG TABLET PO SCH ×2 (08:06→17:00)
[2023-03-30 08:31] VITALS: BP 110/71; PULSE 97; RESP 16; TEMP 98; O2SAT 97
[2023-03-30 20:08] VITALS: BP 105/67; PULSE 79; RESP 17; TEMP 98; O2SAT 98
[2023-03-30] MEDS: QUEtiapine FUMARATE 100 MG TABLET PO SCH (20:23)
[2023-03-31] MEDS: QUEtiapine FUMARATE 25 MG TABLET PO SCH ×2 (08:18→16:43)
[2023-03-31] MEDS: FLUoxetine HCL 20 MG CAPSULE PO SCH (08:18)
[2023-03-31 08:38] VITALS: BP 98/62; PULSE 84; RESP 17; TEMP 97.8; O2SAT 98
[2023-03-31] MEDS: QUEtiapine FUMARATE 100 MG TABLET PO SCH (20:02)
[2023-03-31 20:03] VITALS: BP 107/71; PULSE 79; RESP 17; TEMP 97.5
[2023-04-01 08:10] VITALS: BP 104/70; PULSE 86; RESP 17; TEMP 97.1; O2SAT 97
[2023-04-01] MEDS: QUEtiapine FUMARATE 25 MG TABLET PO SCH ×2 (08:18→16:15)
[2023-04-01] MEDS: FLUoxetine HCL 20 MG CAPSULE PO SCH (08:18)
[2023-04-01] MEDS: QUEtiapine FUMARATE 100 MG TABLET PO SCH (20:09)
[2023-04-01 21:58] VITALS: BP 104/70; PULSE 86; RESP 17; TEMP 97; O2SAT 97
[2023-04-02] MEDS: QUEtiapine FUMARATE 25 MG TABLET PO SCH ×2 (08:09→16:07)
[2023-04-02] MEDS: FLUoxetine HCL 20 MG CAPSULE PO SCH (08:09)
[2023-04-02 08:35] VITALS: BP 100/64; PULSE 85; RESP 16; TEMP 97.9; O2SAT 98
[2023-04-02] MEDS: IBUPROFEN 400 MG TABLET PO PRN (14:49)
[2023-04-02 20:02] VITALS: BP 102/65; PULSE 77; RESP 18; TEMP 97.7; O2SAT 96
[2023-04-02] MEDS: QUEtiapine FUMARATE 200 MG TABLET PO SCH (20:49)
[2023-04-03] MEDS: IBUPROFEN 400 MG TABLET PO PRN (06:26)
[2023-04-03 07:30] VITALS: RESP 18; O2SAT 97
[2023-04-03 08:08] VITALS: BP 100/66; PULSE 82; RESP 16; TEMP 97.9; O2SAT 96
[2023-04-03] MEDS: FLUoxetine HCL 20 MG CAPSULE PO SCH (08:14)
[2023-04-03] MEDS: QUEtiapine FUMARATE 25 MG TABLET PO SCH ×2 (08:14→16:47)
[2023-04-03] MEDS: QUEtiapine FUMARATE 200 MG TABLET PO SCH (20:15)
[2023-04-03 22:25] VITALS: BP 109/68; PULSE 82; RESP 18; TEMP 98; O2SAT 99
[2023-04-04 08:15] VITALS: BP_SYST 153; BP_SYST 96; BP_DIAS 103; BP_DIAS 67; PULSE 78; RESP 16; RESP 17; TEMP 97.6; O2SAT 96
[2023-04-04] MEDS: FLUoxetine HCL 20 MG CAPSULE PO SCH (08:15)
[2023-04-04] MEDS: QUEtiapine FUMARATE 25 MG TABLET PO SCH ×2 (08:15→16:18)
[2023-04-04 20:03] VITALS: BP 103/66; PULSE 81; RESP 18; TEMP 97.8
[2023-04-04] MEDS: QUEtiapine FUMARATE 200 MG TABLET PO SCH (20:23)
[2023-04-05] MEDS: FLUoxetine HCL 20 MG CAPSULE PO SCH (08:20)
[2023-04-05] MEDS: QUEtiapine FUMARATE 25 MG TABLET PO SCH ×2 (08:20→16:57)
[2023-04-05 08:31] VITALS: BP 101/63; PULSE 80; RESP 17; TEMP 96.9; O2SAT 98
[2023-04-05] MEDS: QUEtiapine FUMARATE 200 MG TABLET PO SCH (20:37)
[2023-04-05 21:15] VITALS: BP 106/75; PULSE 82; RESP 18; TEMP 97.5; O2SAT 98
[2023-04-06] MEDS: QUEtiapine FUMARATE 25 MG TABLET PO SCH ×2 (08:04→16:29)
[2023-04-06] MEDS: FLUoxetine HCL 20 MG CAPSULE PO SCH (08:05)
[2023-04-06 08:38] VITALS: BP 113/72; PULSE 83; RESP 17; TEMP 97.3; O2SAT 98
[2023-04-06] MEDS: QUEtiapine FUMARATE 200 MG TABLET PO SCH (20:06)
[2023-04-06 20:10] VITALS: BP 129/68; PULSE 71; RESP 18; TEMP 98.1; O2SAT 98
[2023-04-07] MEDS: QUEtiapine FUMARATE 25 MG TABLET PO SCH (08:13)
[2023-04-07] MEDS: FLUoxetine HCL 20 MG CAPSULE PO SCH (08:13)
[2023-04-07 08:24] VITALS: BP 105/64; PULSE 85; RESP 16; TEMP 97.4; O2SAT 98
[2023-04-07] MEDS ORDERED: QUET25TA PO (11:59)
[2023-04-07] MEDS ORDERED: QUET200T PO (11:59)
[2023-04-07] MEDS ORDERED: FLUO20CA36 PO ×2 (12:00→12:02)
[2023-04-07] MEDS ORDERED: QUET200T30 PO (12:02)
[2023-04-07] MEDS ORDERED: QUET25TA36 PO (12:02)
== END 2023-04-07 14:45 | disposition home or self-care (01) | DRG 750 ==
LOC: EMS 08:05 → B3A 11:13
PROVIDERS: ADMIT Psychiatry & Neurology Child & Adolescent Psychiatry; ATTEND Psychiatry & Neurology Child & Adolescent Psychiatry
DX: F25.1 Schizoaffective disorder, depressive type (principal); R45.851 Suicidal ideations; F19.10 Other psychoactive substance abuse, uncomplicated; G47.00 Insomnia, unspecified; R74.01 Elevation of levels of liver transaminase levels; Z20.822 Contact with and (suspected) exposure to COVID-19; R53.83 Other fatigue; R79.89 Other specified abnormal findings of blood chemistry; Z79.899 Other long term (current) drug therapy
CPT/HCPCS: 80053; 80061; 80074; 80307; 81003; 83036; 84443; 84703; 85025; 87522; 99285; G0480; J1200; J1630; J2060

== ENCOUNTER 2023-05-12 18:03 | Inpatient (IN) | payer MEDICAID, OTHER ==
[~2023-05-12] VITALS: Ht 165.1 cm; Wt 68.2 kg
[~2023-05-12 18:03] MED LIST changes: -QUET100T PO; -QUET100T34 PO; +QUET200T PO; +QUET200T30 PO
[2023-05-12] MEDS ORDERED: HALOPERIDOL LACTATE 5 MG/ML VIAL IM ONE (20:00)
[2023-05-12] MEDS ORDERED: LORazepam 2 MG/ML VIAL IM ONE (20:00)
[2023-05-12] MEDS ORDERED: DiphenhydrAMINE HCL 50 MG/ML VIAL IM ONE (20:00)
[2023-05-12 21:06] LABS: BASOPHILS % (AUTO) 0.9 % (0.0-2.0); HEMATOCRIT 40.4 % (36-46); HEMOGLOBIN 13.7 g/dL (12.0-16.0); MEAN CORPUSCULAR HEMOGLOBIN 30.9 pg (26.0-34.0); MEAN CORPUSCULAR HGB CONC 33.9 G/dL (31.0-37.0); MEAN CORPUSCULAR VOLUME 91 fL (80-100); MONOCYTES # (AUTO) 0.5 K/uL (0.1-1.0); MONOCYTES % (AUTO) 8.9 % (2.0-9.0); NEUTROPHILS # (AUTO) 3.1 K/uL (1.8-7.7); NEUTROPHILS % (AUTO) 53.2 % (40.0-70.0); PLATELET COUNT (AUTO) 221 K/uL (150-450); RED BLOOD CELL COUNT(AUTO) 4.42 MIL/uL (4.00-5.20); RED CELL DISTRIBUTION WIDTH 14.6 % (11.5-14.5); WHITE BLOOD COUNT (AUTO) 5.8 K/uL (4.5-11.0)
[2023-05-12 21:16] LABS: ANION GAP 13 mmol/L (8-16); CALCIUM, TOTAL 9.2 mg/dL (8.8-10.5); CARBON DIOXIDE 24 mmol/L (22-29); CHLORIDE 102 mmol/L (98-107); GLOMERULAR FILTR. RATE CALC > 60 mL/min (>60); GLUCOSE,RANDOM 110 mg/dL (70-110); POTASSIUM 3.7 mmol/L (3.5-5.1); SODIUM SERUM 139 mmol/L (136-145); UREA NITROGEN, BLOOD 16 mg/dL (7-18)
[2023-05-12 21:23] LABS: ALANINE AMINOTRANSFERASE 150 U/L (12-78); ALBUMIN 3.7 g/dL (3.4-5.0); ALKALINE PHOSPHATASE 119 U/L (46-116); ASPARTATE AMINOTRANSFERASE 76 U/L (15-37); BILIRUBIN,TOTAL 0.2 mg/dL (0.1-1.0)
[2023-05-12 21:27] LABS: ALCOHOL, BLOOD (SERUM) < 3 mg/dL (0-10)
[2023-05-13] MEDS ORDERED: QUEtiapine FUMARATE 100 MG TABLET PO ONE
[2023-05-13] MEDS ORDERED: LORazepam 2 MG TABLET PO ONE
[2023-05-13 00:41] LABS: COVID AG,FIA SOURCE NASOPHARYNGEAL
[2023-05-13 00:50] LABS: SARS-COV2 (COVID) ANTIGEN,FIA Negative (Negative)
[2023-05-13] MEDS ORDERED: ZOLPIDEM TARTRATE 10 MG TABLET PO PRN (01:45)
[2023-05-14 15:00] VITALS: BP 97/65; PULSE 86; RESP 18; TEMP 97.6; O2SAT 97
[2023-05-14 20:45] VITALS: BP 104/61; PULSE 83; RESP 18; TEMP 98; O2SAT 98
[2023-05-15] MEDS ORDERED: ALBUTEROL SULFATE HFA 90 MCG/PUFF 8 GM INHALER IH PRN (06:00)
[2023-05-15] MEDS ORDERED: BENZOCAINE/MENTHOL LOZENGE PO PRN (06:00)
[2023-05-15] MEDS ORDERED: PETROLATUM,WHITE 28 GM JELLY TP PRN (06:00)
[2023-05-15] MEDS ORDERED: LOPERAMIDE HCL 2 MG CAPSULE PO PRN (06:00)
[2023-05-15] MEDS ORDERED: DOCUSATE SODIUM 100 MG CAPSULE PO PRN (06:00)
[2023-05-15] MEDS ORDERED: OMEPRAZOLE 20 MG CAPSULE PO PRN (06:00)
[2023-05-15] MEDS ORDERED: CloNIDine HCL 0.1 MG TABLET PO PRN (06:00)
[2023-05-15] MEDS ORDERED: MAGNESIUM HYDROXIDE SUSPENSION 30 ML UDCUP PO PRN (06:00)
[2023-05-15] MEDS ORDERED: MAG HYDROX/AL HYDROX/SIMETH ES 30 ML SUSPENSION UDCUP PO PRN (06:00)
[2023-05-15] MEDS ORDERED: ONDANSETRON HCL 4 MG TABLET PO PRN (06:00)
[2023-05-15] MEDS ORDERED: BACITRACIN 28 GM OINTMENT TP PRN (06:00)
[2023-05-15 08:30] VITALS: BP 106/59; PULSE 71; RESP 17; TEMP 98; O2SAT 96
[2023-05-15] MEDS: RisperiDONE 3 MG TABLET PO SCH (17:17)
[2023-05-15 20:09] VITALS: BP 105/66; PULSE 72; RESP 17; TEMP 97.7; O2SAT 100
[2023-05-16 08:14] VITALS: BP 100/62; PULSE 68; RESP 18; TEMP 97.7; O2SAT 100
[2023-05-16 08:45] LABS: ALANINE AMINOTRANSFERASE 149 U/L (12-78); ALBUMIN 3.3 g/dL (3.4-5.0); ALKALINE PHOSPHATASE 84 U/L (46-116); ANION GAP 9 mmol/L (8-16); ASPARTATE AMINOTRANSFERASE 77 U/L (15-37); BILIRUBIN,TOTAL 0.5 mg/dL (0.1-1.0); CARBON DIOXIDE 25 mmol/L (22-29); CHLORIDE 102 mmol/L (98-107); CHOL/HDL RATIO 2.6 (3.9-5.7); CHOLESTEROL 132 mg/dL (131-200); CREATININE 0.57 mg/dL (0.60-1.30); GLOMERULAR FILTR. RATE CALC > 60 mL/min (>60); GLUCOSE,RANDOM 89 mg/dL (70-110); HDL CHOLESTEROL 50 mg/dL (40-60); LDL CHOL (CALC.) 67 mg/dL (0-130); SODIUM SERUM 136 mmol/L (136-145); THYROID STIMULATING HORMONE 1.67 uIU/mL (0.36-3.74); TOTAL PROTEIN, SERUM 7.1 g/dL (6.4-8.2); TRIGLYCERIDES 73 mg/dL (15-150); UREA NITROGEN, BLOOD 13 mg/dL (7-18)
[2023-05-16] MEDS: RisperiDONE 3 MG TABLET PO SCH ×2 (09:13→16:35)
[2023-05-16] MEDS ORDERED: DiphenhydrAMINE HCL 50 MG/ML VIAL ONE (18:36)
[2023-05-16] MEDS ORDERED: DiphenhydrAMINE HCL 50 MG/ML VIAL IM ONE (18:45)
[2023-05-16 20:32] VITALS: BP 139/91; PULSE 112; RESP 20; TEMP 97.5; O2SAT 98
[2023-05-17 08:25] VITALS: BP 107/65; PULSE 98; RESP 18; TEMP 97.4; O2SAT 96
[2023-05-17] MEDS: RisperiDONE 3 MG TABLET PO SCH ×2 (08:46→16:09)
[2023-05-17] MEDS ORDERED: LORazepam 2 MG/ML VIAL ONE (14:41)
[2023-05-17] MEDS ORDERED: DiphenhydrAMINE HCL 50 MG/ML VIAL ONE (14:41)
[2023-05-17] MEDS ORDERED: HALOPERIDOL LACTATE 5 MG/ML VIAL ONE (14:42)
[2023-05-17] MEDS ORDERED: HALOPERIDOL LACTATE 5 MG/ML VIAL IM ONE (15:15)
[2023-05-17] MEDS ORDERED: DiphenhydrAMINE HCL 50 MG/ML VIAL IM ONE (15:15)
[2023-05-17] MEDS ORDERED: LORazepam 2 MG/ML VIAL IM ONE (15:15)
[2023-05-17] MEDS: LORazepam 2 MG TABLET PO PRN (16:09)
[2023-05-17 20:20] VITALS: BP 110/75; PULSE 82; RESP 19; TEMP 98; O2SAT 98
[2023-05-18 08:31] VITALS: BP 120/78; PULSE 110; RESP 17; TEMP 98.3; O2SAT 97
[2023-05-18] MEDS: LORazepam 2 MG TABLET PO PRN (09:21)
[2023-05-18] MEDS: HALOPERIDOL 5 MG TABLET PO PRN (09:21)
[2023-05-18] MEDS: RisperiDONE 3 MG TABLET PO SCH ×2 (09:21→18:11)
[2023-05-18 20:58] VITALS: BP 117/75; PULSE 88; RESP 18; TEMP 98
[2023-05-19 08:25] VITALS: BP 100/66; PULSE 95; RESP 18; TEMP 97.9; O2SAT 98
[2023-05-19] MEDS: LORazepam 2 MG TABLET PO PRN (08:27)
[2023-05-19] MEDS: HALOPERIDOL 5 MG TABLET PO PRN (08:27)
[2023-05-19] MEDS: RisperiDONE 3 MG TABLET PO SCH ×2 (08:27→16:19)
[2023-05-19 19:56] VITALS: BP 114/70; PULSE 79; RESP 18; TEMP 98.1; O2SAT 96
[2023-05-20 02:18] VITALS: RESP 18
[2023-05-20 08:21] VITALS: BP 101/66; PULSE 88; RESP 16; TEMP 98; O2SAT 97
[2023-05-20] MEDS: RisperiDONE 3 MG TABLET PO SCH ×2 (09:16→17:35)
[2023-05-20 20:41] VITALS: BP 96/65; PULSE 88; RESP 17; TEMP 97.8; O2SAT 96
[2023-05-21] MEDS: HALOPERIDOL 5 MG TABLET PO PRN (08:24)
[2023-05-21] MEDS: RisperiDONE 3 MG TABLET PO SCH ×2 (08:24→16:17)
[2023-05-21] MEDS: LORazepam 2 MG TABLET PO PRN (08:24)
[2023-05-21 08:29] VITALS: BP 96/65; PULSE 81; RESP 16; TEMP 97.9; O2SAT 97
[2023-05-21 20:44] VITALS: BP 109/67; PULSE 78; RESP 18; TEMP 97.3; O2SAT 97
[2023-05-22] MEDS: RisperiDONE 3 MG TABLET PO SCH ×2 (08:10→16:31)
[2023-05-22] MEDS: HALOPERIDOL 5 MG TABLET PO PRN (08:10)
[2023-05-22 08:45] VITALS: BP 99/62; PULSE 89; RESP 18; TEMP 97.5; O2SAT 95
[2023-05-22 20:38] VITALS: BP 96/61; PULSE 87; RESP 18; TEMP 97.9; O2SAT 97
[2023-05-23 07:46] LABS: GLUCOMETER DEV NAME(LOC) POC.BV; POC SARS-COV2 AG, FIA NEGATIVE (NEGATIVE)
[2023-05-23] MEDS: RisperiDONE 3 MG TABLET PO SCH ×2 (08:00→16:34)
[2023-05-23 08:29] VITALS: BP 104/65; PULSE 80; RESP 16; TEMP 97.6; O2SAT 97
[2023-05-23 20:15] VITALS: BP 109/70; PULSE 78; RESP 17; TEMP 97.7; O2SAT 98
[2023-05-24 08:25] VITALS: BP 118/84; PULSE 83; RESP 16; TEMP 98.6; O2SAT 97
[2023-05-24] MEDS: RisperiDONE 3 MG TABLET PO SCH ×2 (08:47→17:10)
[2023-05-24 21:04] VITALS: BP 93/64; PULSE 81; RESP 18; TEMP 97.6; O2SAT 97
[2023-05-25 08:23] VITALS: BP 121/76; PULSE 92; RESP 16; TEMP 98; O2SAT 98
[2023-05-25] MEDS: RisperiDONE 3 MG TABLET PO SCH ×2 (08:41→16:50)
[2023-05-25] MEDS: LORazepam 2 MG TABLET PO PRN (08:41)
[2023-05-25 20:20] VITALS: BP 104/63; PULSE 83; RESP 17; TEMP 97.8; O2SAT 98
[2023-05-26] MEDS: RisperiDONE 3 MG TABLET PO SCH ×2 (08:14→16:22)
[2023-05-26 09:31] VITALS: BP 101/70; PULSE 81; RESP 17; TEMP 97.5; O2SAT 97
[2023-05-26 20:00] VITALS: BP 116/68; PULSE 76; RESP 18; TEMP 97.8; O2SAT 97
[2023-05-27] MEDS: RisperiDONE 3 MG TABLET PO SCH ×2 (08:22→16:11)
[2023-05-27] MEDS: LORazepam 2 MG TABLET PO PRN (08:22)
[2023-05-27 08:26] VITALS: BP 100/62; PULSE 80; RESP 19; TEMP 97; O2SAT 98
[2023-05-27 23:39] VITALS: BP 118/68; PULSE 80; RESP 18; TEMP 97.9; O2SAT 97
[2023-05-28] MEDS: RisperiDONE 3 MG TABLET PO SCH ×2 (08:14→16:13)
[2023-05-28 08:16] VITALS: RESP 18
[2023-05-28] MEDS: LORazepam 2 MG TABLET PO PRN (08:16)
[2023-05-28] MEDS: ACETAMINOPHEN 325 MG TABLET PO PRN (08:16)
[2023-05-28 08:24] VITALS: BP 107/74; PULSE 88; RESP 16; TEMP 98.1; O2SAT 97
[2023-05-28 09:16] VITALS: RESP 16
[2023-05-28 20:45] VITALS: BP 105/67; PULSE 95; RESP 19; TEMP 97.7; O2SAT 98
[2023-05-29] MEDS: ACETAMINOPHEN 325 MG TABLET PO PRN (06:37)
[2023-05-29 06:38] VITALS: RESP 18
[2023-05-29 07:25] VITALS: RESP 18
[2023-05-29 08:15] VITALS: BP 109/80; PULSE 66; RESP 16; TEMP 98; O2SAT 95
[2023-05-29] MEDS: RisperiDONE 3 MG TABLET PO SCH ×2 (08:29→16:54)
[2023-05-29] MEDS: IBUPROFEN 600 MG TABLET PO PRN (12:40)
[2023-05-29 20:00] VITALS: BP 97/66; PULSE 89; RESP 19; TEMP 97.2; O2SAT 97
[2023-05-30 08:15] VITALS: BP 102/66; PULSE 76; RESP 16; TEMP 98.2; O2SAT 96
[2023-05-30] MEDS: RisperiDONE 3 MG TABLET PO SCH ×2 (08:21→16:52)
[2023-05-30] MEDS: LORazepam 2 MG TABLET PO PRN (08:21)
[2023-05-30] MEDS: ACETAMINOPHEN 325 MG TABLET PO PRN (08:22)
[2023-05-30 23:30] VITALS: RESP 18
[2023-05-31] MEDS: LORazepam 2 MG TABLET PO PRN (08:29)
[2023-05-31] MEDS: RisperiDONE 3 MG TABLET PO SCH ×2 (08:29→16:39)
[2023-05-31 08:45] VITALS: BP 123/69; PULSE 74; RESP 16; TEMP 97.9; O2SAT 97
[2023-05-31] MEDS: IBUPROFEN 600 MG TABLET PO PRN (10:28)
[2023-05-31 20:00] VITALS: BP 106/62; PULSE 64; RESP 18; TEMP 97.8; O2SAT 97
[2023-06-01] MEDS: RisperiDONE 3 MG TABLET PO SCH ×2 (08:17→16:14)
[2023-06-01 14:28] VITALS: BP 99/60; PULSE 75; RESP 17; TEMP 97.9; O2SAT 98
[2023-06-01 20:29] VITALS: BP 93/62; PULSE 67; RESP 18; TEMP 98; O2SAT 98
[2023-06-02 08:31] VITALS: BP 100/65; PULSE 78; RESP 16; TEMP 98; O2SAT 97
[2023-06-02] MEDS: RisperiDONE 3 MG TABLET PO SCH ×2 (08:39→16:45)
[2023-06-02] MEDS: LORazepam 2 MG TABLET PO PRN (08:40)
[2023-06-02] MEDS ORDERED: RISP3TAB63 PO (10:36)
[2023-06-02 20:15] VITALS: BP 104/67; PULSE 91; RESP 18; TEMP 97.6; O2SAT 98
== END 2023-06-03 07:30 | disposition home or self-care (01) | DRG 750 ==
LOC: EMS 18:06 → B2S 05-14 11:55 → B3A 05-14 13:42
PROVIDERS: ADMIT Psychiatry & Neurology Psychiatry; ATTEND Psychiatry & Neurology Psychiatry
DX: F25.1 Schizoaffective disorder, depressive type (principal); R45.851 Suicidal ideations; R79.89 Other specified abnormal findings of blood chemistry; K59.00 Constipation, unspecified; G47.00 Insomnia, unspecified; F41.9 Anxiety disorder, unspecified; Z20.822 Contact with and (suspected) exposure to COVID-19; Z59.00 Homelessness unspecified; Z79.899 Other long term (current) drug therapy; Z72.0 Tobacco use
CPT/HCPCS: 80053; 80061; 84443; 84703; 85025; 99285; G0480; J1200; J1630; J2060

== ENCOUNTER 2023-07-12 10:06 | Inpatient (IN) | payer MEDICAID, OTHER ==
[~2023-07-12] VITALS: Ht 160 cm; Wt 76.2 kg
[~2023-07-12 10:06] MED LIST changes: -FLUO20CA36 PO; -QUET200T PO; -QUET200T30 PO; -QUET25TA PO; -QUET25TA36 PO; +RISP3TAB63 PO
[2023-07-12 10:44] LABS: COVID AG,FIA SOURCE NASAL SWAB
[2023-07-12 10:56] LABS: BASOPHILS % (AUTO) 0.3 % (0.0-2.0); EOSINOPHILS % (AUTO) 3.1 % (1.0-6.0); HEMATOCRIT 37.3 % (36-46); HEMOGLOBIN 12.6 g/dL (12.0-16.0); LYMPHOCYTES # (AUTO) 1.3 K/uL (1.0-4.8); LYMPHOCYTES % (AUTO) 30.7 % (22.0-44.0); MEAN CORPUSCULAR HEMOGLOBIN 30.7 pg (26.0-34.0); MEAN CORPUSCULAR HGB CONC 33.8 G/dL (31.0-37.0); MEAN CORPUSCULAR VOLUME 91 fL (80-100); MONOCYTES # (AUTO) 0.4 K/uL (0.1-1.0); MONOCYTES % (AUTO) 8.5 % (2.0-9.0); NEUTROPHILS # (AUTO) 2.5 K/uL (1.8-7.7); NEUTROPHILS % (AUTO) 57.4 % (40.0-70.0); PLATELET COUNT (AUTO) 199 K/uL (150-450); RED CELL DISTRIBUTION WIDTH 13.5 % (11.5-14.5); WHITE BLOOD COUNT (AUTO) 4.4 K/uL (4.5-11.0)
[2023-07-12 11:09] LABS: SARS-COV2 (COVID) ANTIGEN,FIA Negative (Negative)
[2023-07-12 11:12] LABS: ANION GAP 8 mmol/L (8-16); CALCIUM, TOTAL 8.6 mg/dL (8.8-10.5); CARBON DIOXIDE 26 mmol/L (22-29); CHLORIDE 105 mmol/L (98-107); CREATININE 0.69 mg/dL (0.60-1.30); GLOMERULAR FILTR. RATE CALC > 60 mL/min (>60); GLUCOSE,RANDOM 124 mg/dL (70-110); POTASSIUM 3.7 mmol/L (3.5-5.1); SODIUM SERUM 139 mmol/L (136-145); UREA NITROGEN, BLOOD 10 mg/dL (7-18)
[2023-07-12 11:18] LABS: ALANINE AMINOTRANSFERASE 130 U/L (12-78); ALBUMIN 3.4 g/dL (3.4-5.0); ALKALINE PHOSPHATASE 83 U/L (46-116); ASPARTATE AMINOTRANSFERASE 62 U/L (15-37); BILIRUBIN,TOTAL 0.3 mg/dL (0.1-1.0); TOTAL PROTEIN, SERUM 6.8 g/dL (6.4-8.2)
[2023-07-12 11:45] LABS: ALCOHOL, BLOOD (SERUM) < 3 mg/dL (0-10)
[2023-07-12] MEDS ORDERED: ACETAMINOPHEN 325 MG TABLET PO PRN ×2 (12:45→20:30)
[2023-07-12] MEDS ORDERED: INFLUENZA VIRUS VACCINE QVS 2023-24 (6MO+)/PF 60 MCG/0.5 ML SYRINGE IM. ONE (17:00)
[2023-07-12] MEDS ORDERED: LORazepam 2 MG TABLET PO PRN (17:00)
[2023-07-12] MEDS ORDERED: PNEUMOCOCCAL VACCINE POLYVALENT 0.5 ML SYRINGE [PPSV23] IM. ONE (17:00)
[2023-07-12] MEDS ORDERED: HALOPERIDOL 5 MG TABLET PO PRN (17:00)
[2023-07-12] MEDS ORDERED: ZOLPIDEM TARTRATE 10 MG TABLET PO PRN (17:00)
[2023-07-12 18:45] VITALS: BP 120/75; PULSE 74; RESP 20; TEMP 97.9
[2023-07-12] MEDS ORDERED: OMEPRAZOLE 20 MG CAPSULE PO PRN (20:30)
[2023-07-12] MEDS ORDERED: ONDANSETRON HCL 4 MG TABLET PO PRN (20:30)
[2023-07-12] MEDS ORDERED: CloNIDine HCL 0.1 MG TABLET PO PRN (20:30)
[2023-07-12] MEDS ORDERED: LOPERAMIDE HCL 2 MG CAPSULE PO PRN (20:30)
[2023-07-12] MEDS ORDERED: BACITRACIN 28 GM OINTMENT TP PRN (20:30)
[2023-07-12] MEDS ORDERED: MAG HYDROX/ALUMINUM HYD/SIMETH ES 30 ML SUSPENSION UDCUP PO PRN (20:30)
[2023-07-12] MEDS ORDERED: IBUPROFEN 600 MG TABLET PO PRN (20:30)
[2023-07-12] MEDS ORDERED: MAGNESIUM HYDROXIDE SUSPENSION 30 ML UDCUP PO PRN (20:30)
[2023-07-12] MEDS ORDERED: BENZOCAINE/MENTHOL LOZENGE PO PRN (20:30)
[2023-07-12] MEDS ORDERED: PETROLATUM,WHITE 28 GM JELLY TP PRN (20:30)
[2023-07-12] MEDS ORDERED: ALBUTEROL SULFATE HFA 90 MCG/PUFF 8 GM INHALER IH PRN (20:30)
[2023-07-12] MEDS ORDERED: DOCUSATE SODIUM 100 MG CAPSULE PO PRN (20:30)
[2023-07-12 20:44] VITALS: BP 99/68; PULSE 74; RESP 18; TEMP 97.7; O2SAT 100
[2023-07-13 08:24] VITALS: BP 100/60; PULSE 73; RESP 17; TEMP 97.5; O2SAT 96
[2023-07-13 08:28] LABS: LITHIUM < 0.20 mmol/L (0.60-1.20)
[2023-07-13 08:39] LABS: APPEARANCE,URINE TURBID (CLEAR); BILIRUBIN,URINE NEGATIVE (NEGATIVE); COLOR,URINE LIGHT ORANGE (YELLOW); GLUCOSE, URINE (UA) NEGATIVE (NEGATIVE); KETONES,URINE NEGATIVE (NEGATIVE); LEUKOCYTE ESTERASE ,URINE NEGATIVE (NEGATIVE); NITRATE,URINE NEGATIVE (NEGATIVE); OCCULT BLOOD,URINE LARGE (NEGATIVE); PROTEIN,URINE TRACE mg/dL (NEGATIVE); SPECIFIC GRAVITIY, URINE 1.028 (1.003-1.030); UROBILINOGEN,URINE <=1.0 mg/dL (<=1.0)
[2023-07-13 08:40] LABS: HEMOGLOBIN A1C 4.5 % (3.8-5.6)
[2023-07-13 08:46] LABS: ALCOHOL, URINE DRUG SCREEN NEGATIVE (NEGATIVE); AMPHET/METH SCREEN,URINE NEGATIVE (NEGATIVE); BARBITURATE SCREEN, URINE NEGATIVE (NEGATIVE); BENZODIAZEPINES SCREEN,URINE NEGATIVE (NEGATIVE); CANNABINOID SCREEN,URINE NEGATIVE (NEGATIVE); COCAINE SCREEN,URINE NEGATIVE (NEGATIVE); METHADONE SCREEN, URINE NEGATIVE (NEGATIVE); OPIATE SCREEN,URINE NEGATIVE (NEGATIVE); PHENCYCLIDINE SCREEN,URINE NEGATIVE (NEGATIVE)
[2023-07-13 08:50] LABS: CHOL/HDL RATIO 2.8 (3.9-5.7); CHOLESTEROL 128 mg/dL (131-200); HDL CHOLESTEROL 45 mg/dL (40-60); LDL CHOL (CALC.) 69 mg/dL (0-130); TRIGLYCERIDES 69 mg/dL (15-150)
[2023-07-13] MEDS: RisperiDONE 3 MG TABLET PO SCH ×2 (09:16→17:19)
[2023-07-13 09:31] LABS: AMORPHOUS SEDIMENT,UR Moderate /LPF (None Seen); BACTERIA,URINE Few /HPF (None Seen); SQUAMOUS EPITHELIAL CELL,UR Few /LPF (None Seen); WBC,URINE None Seen /HPF (0-5)
[2023-07-13 09:33] LABS: HCG,QUANTITATIVE < 1 mIU/mL (0-6)
[2023-07-13 09:34] LABS: VALPROIC ACID < 3 mcg/mL (50-100)
[2023-07-13] MEDS: BENZTROPINE MESYLATE 2 MG TABLET PO SCH (20:05)
[2023-07-14 00:32] VITALS: RESP 18; TEMP 97.8
[2023-07-14 08:36] VITALS: BP 118/79; PULSE 86; RESP 18; TEMP 97.6; O2SAT 98
[2023-07-14] MEDS: RisperiDONE 3 MG TABLET PO SCH ×2 (08:38→17:15)
[2023-07-14] MEDS: BENZTROPINE MESYLATE 2 MG TABLET PO SCH (20:16)
[2023-07-14 20:58] VITALS: RESP 18
[2023-07-15 08:39] VITALS: BP 100/68; PULSE 78; RESP 16; TEMP 98.6; O2SAT 98
[2023-07-15] MEDS: RisperiDONE 3 MG TABLET PO SCH ×2 (08:40→16:12)
[2023-07-15] MEDS ORDERED: BENZ2TAB71 PO (13:50)
[2023-07-15] MEDS: BENZTROPINE MESYLATE 2 MG TABLET PO SCH (20:58)
[2023-07-15 22:58] VITALS: RESP 18
[2023-07-16] MEDS: RisperiDONE 3 MG TABLET PO SCH ×2 (08:11→16:30)
[2023-07-16 08:41] VITALS: BP 106/70; PULSE 92; RESP 16; TEMP 97.6; O2SAT 97
[2023-07-16] MEDS: BENZTROPINE MESYLATE 2 MG TABLET PO SCH (20:13)
[2023-07-16 20:44] VITALS: BP 90/51; PULSE 89; RESP 17; TEMP 97.8; O2SAT 99
[2023-07-17] MEDS: RisperiDONE 3 MG TABLET PO SCH ×2 (08:29→16:16)
[2023-07-17 09:17] VITALS: BP 121/75; PULSE 89; RESP 16; TEMP 98.1; O2SAT 97
[2023-07-17] MEDS: BENZTROPINE MESYLATE 2 MG TABLET PO SCH (20:11)
[2023-07-17 21:31] VITALS: BP 100/60; PULSE 98; RESP 17; TEMP 98; O2SAT 97
[2023-07-18 08:36] VITALS: BP 100/67; PULSE 100; RESP 16; TEMP 97.5; O2SAT 98
[2023-07-18] MEDS: RisperiDONE 3 MG TABLET PO SCH (08:57)
[2023-07-18] MEDS ORDERED: RISP3TAB63 PO (19:20)
[2023-07-18] MEDS ORDERED: BENZ2TAB71 PO (19:20)
== END 2023-07-18 09:00 | disposition home or self-care (01) | DRG 750 ==
LOC: EMS 10:16 → B3A 14:12
PROVIDERS: ADMIT Psychiatry & Neurology Psychiatry; ATTEND Psychiatry & Neurology Psychiatry
DX: F20.9 Schizophrenia, unspecified (principal); R45.851 Suicidal ideations; F41.9 Anxiety disorder, unspecified; G47.00 Insomnia, unspecified; Z20.822 Contact with and (suspected) exposure to COVID-19; K59.00 Constipation, unspecified; F15.90 Other stimulant use, unspecified, uncomplicated; F32.9 Major depressive disorder, single episode, unspecified; Z72.0 Tobacco use; Z79.899 Other long term (current) drug therapy; Z98.891 History of uterine scar from previous surgery
CPT/HCPCS: 80053; 80061; 80164; 80178; 80307; 81001; 83036; 84702; 85025; 90686; 90732; 99285; G0480

== ENCOUNTER 2023-08-02 19:10 | Inpatient (IN) | payer MEDICAID, OTHER ==
[~2023-08-02] VITALS: Ht 160 cm; Wt 72.1 kg
[~2023-08-02 19:10] MED LIST changes: +BENZ2TAB71 PO
[2023-08-02 19:40] LABS: BASOPHILS % (AUTO) 1.3 % (0.0-2.0); EOSINOPHILS % (AUTO) 2.1 % (1.0-6.0); HEMATOCRIT 36.8 % (36-46); HEMOGLOBIN 12.7 g/dL (12.0-16.0); LYMPHOCYTES # (AUTO) 1.6 K/uL (1.0-4.8); LYMPHOCYTES % (AUTO) 33.1 % (22.0-44.0); MEAN CORPUSCULAR HEMOGLOBIN 30.8 pg (26.0-34.0); MEAN CORPUSCULAR HGB CONC 34.7 G/dL (31.0-37.0); MEAN CORPUSCULAR VOLUME 89 fL (80-100); MONOCYTES # (AUTO) 0.4 K/uL (0.1-1.0); MONOCYTES % (AUTO) 8.9 % (2.0-9.0); NEUTROPHILS # (AUTO) 2.7 K/uL (1.8-7.7); NEUTROPHILS % (AUTO) 54.6 % (40.0-70.0); PLATELET COUNT (AUTO) 176 K/uL (150-450); RED BLOOD CELL COUNT(AUTO) 4.14 MIL/uL (4.00-5.20); RED CELL DISTRIBUTION WIDTH 13.5 % (11.5-14.5); WHITE BLOOD COUNT (AUTO) 4.9 K/uL (4.5-11.0)
[2023-08-02 19:49] LABS: ANION GAP 9 mmol/L (8-16); CALCIUM, TOTAL 9.4 mg/dL (8.8-10.5); CARBON DIOXIDE 25 mmol/L (22-29); CHLORIDE 103 mmol/L (98-107); CREATININE 0.95 mg/dL (0.60-1.30); GLOMERULAR FILTR. RATE CALC > 60 mL/min (>60); GLUCOSE,RANDOM 159 mg/dL (70-110); POTASSIUM 3.4 mmol/L (3.5-5.1); SODIUM SERUM 137 mmol/L (136-145); UREA NITROGEN, BLOOD 14 mg/dL (7-18)
[2023-08-02 19:59] LABS: ALCOHOL, BLOOD (SERUM) < 3 mg/dL (0-10)
[2023-08-02] MEDS ORDERED: POTASSIUM CHLORIDE 20 MEQ ER TABLET PO ONE (20:00)
[2023-08-02 20:01] LABS: ALANINE AMINOTRANSFERASE 162 U/L (12-78); ALBUMIN 3.5 g/dL (3.4-5.0); ALKALINE PHOSPHATASE 94 U/L (46-116); ASPARTATE AMINOTRANSFERASE 70 U/L (15-37); BILIRUBIN,TOTAL 0.4 mg/dL (0.1-1.0); HCG,QUANTITATIVE < 1 mIU/mL (0-6)
[2023-08-02 20:07] LABS: COVID AG,FIA SOURCE NASOPHARYNGEAL
[2023-08-02] MEDS ORDERED: LORazepam 2 MG TABLET PO PRN (20:30)
[2023-08-02] MEDS ORDERED: ZOLPIDEM TARTRATE 10 MG TABLET PO PRN (20:30)
[2023-08-02] MEDS ORDERED: HALOPERIDOL 5 MG TABLET PO PRN (20:30)
[2023-08-02 20:41] LABS: SARS-COV2 (COVID) ANTIGEN,FIA Negative (Negative)
[2023-08-03 02:14] LABS: APPEARANCE,URINE HAZY (CLEAR); BILIRUBIN,URINE NEGATIVE (NEGATIVE); COLOR,URINE YELLOW (YELLOW); GLUCOSE, URINE (UA) NEGATIVE (NEGATIVE); KETONES,URINE NEGATIVE (NEGATIVE); LEUKOCYTE ESTERASE ,URINE NEGATIVE (NEGATIVE); NITRATE,URINE NEGATIVE (NEGATIVE); OCCULT BLOOD,URINE LARGE (NEGATIVE); PH,URINE 5.5 (5.0-8.0); PH,URINE DRUG SCREEN 5.5 (5.0-8.0); PROTEIN,URINE 30-70 mg/dL (NEGATIVE); SPECIFIC GRAVITIY, URINE 1.032 (1.003-1.030); UROBILINOGEN,URINE <=1.0 mg/dL (<=1.0)
[2023-08-03 02:19] LABS: ALCOHOL, URINE DRUG SCREEN NEGATIVE (NEGATIVE); AMPHET/METH SCREEN,URINE NEGATIVE (NEGATIVE); BARBITURATE SCREEN, URINE NEGATIVE (NEGATIVE); BENZODIAZEPINES SCREEN,URINE NEGATIVE (NEGATIVE); CANNABINOID SCREEN,URINE NEGATIVE (NEGATIVE); COCAINE SCREEN,URINE NEGATIVE (NEGATIVE); METHADONE SCREEN, URINE NEGATIVE (NEGATIVE); OPIATE SCREEN,URINE NEGATIVE (NEGATIVE); PHENCYCLIDINE SCREEN,URINE NEGATIVE (NEGATIVE)
[2023-08-03 02:24] LABS: BACTERIA,URINE Few /HPF (None Seen); RBC,URINE None Seen /HPF (0-2); SQUAMOUS EPITHELIAL CELL,UR Few /LPF (None Seen); WBC,URINE 0-2 /HPF (0-5)
[2023-08-03 02:25] VITALS: BP 102/62; PULSE 71; RESP 18; TEMP 97.3; O2SAT 97
[2023-08-03] MEDS ORDERED: MAG HYDROX/ALUMINUM HYD/SIMETH ES 30 ML SUSPENSION UDCUP PO PRN (05:30)
[2023-08-03] MEDS ORDERED: CloNIDine HCL 0.1 MG TABLET PO PRN (05:30)
[2023-08-03] MEDS ORDERED: IBUPROFEN 600 MG TABLET PO PRN (05:30)
[2023-08-03] MEDS ORDERED: BENZOCAINE/MENTHOL LOZENGE PO PRN (05:30)
[2023-08-03] MEDS ORDERED: PETROLATUM,WHITE 28 GM JELLY TP PRN (05:30)
[2023-08-03] MEDS ORDERED: ONDANSETRON HCL 4 MG TABLET PO PRN (05:30)
[2023-08-03] MEDS ORDERED: LOPERAMIDE HCL 2 MG CAPSULE PO PRN (05:30)
[2023-08-03] MEDS ORDERED: ACETAMINOPHEN 325 MG TABLET PO PRN (05:30)
[2023-08-03] MEDS ORDERED: OMEPRAZOLE 20 MG CAPSULE PO PRN (05:30)
[2023-08-03] MEDS ORDERED: BACITRACIN 28 GM OINTMENT TP PRN (05:30)
[2023-08-03] MEDS ORDERED: ALBUTEROL SULFATE HFA 90 MCG/PUFF 8 GM INHALER IH PRN (05:30)
[2023-08-03] MEDS ORDERED: DOCUSATE SODIUM 100 MG CAPSULE PO PRN (05:30)
[2023-08-03] MEDS ORDERED: MAGNESIUM HYDROXIDE SUSPENSION 30 ML UDCUP PO PRN (05:30)
[2023-08-03 08:15] VITALS: BP 107/67; PULSE 72; RESP 18; TEMP 98; O2SAT 97
[2023-08-03] MEDS: RisperiDONE 3 MG TABLET PO SCH (16:28)
[2023-08-03 23:54] VITALS: BP 103/58; PULSE 55; RESP 16; TEMP 97.5; O2SAT 99
[2023-08-04 02:07] LABS: HEPATITIS C AB (EIA) Reactive (Non Reactive)
[2023-08-04 08:00] VITALS: BP 124/74; PULSE 87; RESP 17; TEMP 97.4; O2SAT 97
[2023-08-04] MEDS: RisperiDONE 3 MG TABLET PO SCH ×2 (08:19→16:44)
[2023-08-04 20:26] VITALS: BP 101/73; PULSE 88; RESP 18; TEMP 98.2; O2SAT 97
[2023-08-05 08:01] VITALS: BP 96/66; PULSE 89; RESP 16; TEMP 97.9; O2SAT 96
[2023-08-05] MEDS: RisperiDONE 3 MG TABLET PO SCH ×2 (08:08→16:23)
[2023-08-05 20:11] VITALS: BP 107/70; PULSE 90; RESP 18; TEMP 98.7; O2SAT 96
[2023-08-06] MEDS: RisperiDONE 3 MG TABLET PO SCH ×2 (08:44→16:34)
[2023-08-06 08:54] VITALS: BP 109/65; PULSE 89; RESP 17; TEMP 97.5; O2SAT 97
[2023-08-06 15:06] LABS: HEPATITIS C RT-PCR,QNT 1560000 IU/mL
[2023-08-06 20:03] VITALS: BP 103/71; PULSE 87; RESP 17; TEMP 97.8; O2SAT 97
[2023-08-06] MEDS ORDERED: RISP3TAB63 PO (21:26)
[2023-08-07 08:51] LABS: ANION GAP 9 mmol/L (8-16); CALCIUM, TOTAL 8.7 mg/dL (8.8-10.5); CARBON DIOXIDE 25 mmol/L (22-29); CHLORIDE 103 mmol/L (98-107); CREATININE 0.71 mg/dL (0.60-1.30); GLOMERULAR FILTR. RATE CALC > 60 mL/min (>60); GLUCOSE,RANDOM 108 mg/dL (70-110); SODIUM SERUM 137 mmol/L (136-145); UREA NITROGEN, BLOOD 9 mg/dL (7-18)
== END 2023-08-07 07:30 | disposition home or self-care (01) | DRG 750 ==
LOC: EMS 19:11 → B2S 08-03 00:01
PROVIDERS: ADMIT Psychiatry & Neurology Psychiatry; ATTEND Psychiatry & Neurology Psychiatry
DX: F20.9 Schizophrenia, unspecified (principal); R45.851 Suicidal ideations; E87.6 Hypokalemia; F41.9 Anxiety disorder, unspecified; G47.00 Insomnia, unspecified; K59.00 Constipation, unspecified; Z20.822 Contact with and (suspected) exposure to COVID-19; Z72.0 Tobacco use
CPT/HCPCS: 80048; 80053; 80307; 81001; 84702; 85025; 86803; 87081; 87340; 87522; 99285; G0480

== ENCOUNTER 2024-03-09 09:00 | Emergency (ER) | payer MEDICAID, OTHER ==
[~2024-03-09] VITALS: Ht 165.1 cm; Wt 59.1 kg
[~2024-03-09 09:00] MED LIST changes: -BENZ2TAB71 PO; +LURA80TA2 PO; -RISP3TAB63 PO
[2024-03-09 09:05] VITALS: BP 119/72; PULSE 94; RESP 16; TEMP 98
== END 2024-03-09 13:17 | disposition left against medical advice (07) ==
LOC: EMS 09:04
DX: Z04.6 Encounter for general psychiatric examination, requested by authority (principal); Z53.21 Procedure and treatment not carried out due to patient leaving prior to being seen by health care provider

== ENCOUNTER 2024-07-08 12:07 | Inpatient (IN) | payer MEDICAID, OTHER ==
[~2024-07-08] VITALS: Ht 157.5 cm; Wt 73.2 kg
[2024-07-08 12:37] LABS: PH,URINE DRUG SCREEN 5.5 (5.0-8.0)
[2024-07-08 12:43] LABS: AMPHET/METH SCREEN,URINE NEGATIVE (NEGATIVE); BARBITURATE SCREEN, URINE NEGATIVE (NEGATIVE); BENZODIAZEPINES SCREEN,URINE NEGATIVE (NEGATIVE); CANNABINOID SCREEN,URINE NEGATIVE (NEGATIVE); COCAINE SCREEN,URINE NEGATIVE (NEGATIVE); METHADONE SCREEN, URINE NEGATIVE (NEGATIVE); OPIATE SCREEN,URINE NEGATIVE (NEGATIVE); PHENCYCLIDINE SCREEN,URINE NEGATIVE (NEGATIVE)
[2024-07-08 12:44] LABS: ALCOHOL, URINE DRUG SCREEN NEGATIVE (NEGATIVE)
[2024-07-08 12:49] LABS: BASOPHILS % (AUTO) 0.7 % (0.0-2.0); EOSINOPHILS % (AUTO) 1.2 % (1.0-6.0); HEMATOCRIT 40.9 % (36-46); HEMOGLOBIN 14.2 g/dL (12.0-16.0); LYMPHOCYTES # (AUTO) 1.3 K/uL (1.0-4.8); LYMPHOCYTES % (AUTO) 26.9 % (22.0-44.0); MEAN CORPUSCULAR HEMOGLOBIN 32.1 pg (26.0-34.0); MEAN CORPUSCULAR HGB CONC 34.8 G/dL (31.0-37.0); MEAN CORPUSCULAR VOLUME 92 fL (80-100); MONOCYTES # (AUTO) 0.2 K/uL (0.1-1.0); MONOCYTES % (AUTO) 4.5 % (2.0-9.0); NEUTROPHILS # (AUTO) 3.1 K/uL (1.8-7.7); NEUTROPHILS % (AUTO) 66.7 % (40.0-70.0); PLATELET COUNT (AUTO) 203 K/uL (150-450); RED BLOOD CELL COUNT(AUTO) 4.44 MIL/uL (4.00-5.20); RED CELL DISTRIBUTION WIDTH 13.4 % (11.5-14.5); WHITE BLOOD COUNT (AUTO) 4.7 K/uL (4.5-11.0)
[2024-07-08 12:52] LABS: COVID AG,FIA SOURCE NASAL SWAB
[2024-07-08 12:55] LABS: ANION GAP 8 mmol/L (8-16); CARBON DIOXIDE 27 mmol/L (22-29); CHLORIDE 104 mmol/L (98-107); CREATININE 0.82 mg/dL (0.60-1.30); GLOMERULAR FILTR. RATE CALC > 60 mL/min (>60); GLUCOSE,RANDOM 157 mg/dL (70-110); POTASSIUM 3.9 mmol/L (3.5-5.1); SODIUM SERUM 139 mmol/L (136-145); UREA NITROGEN, BLOOD 11 mg/dL (7-18)
[2024-07-08 13:06] LABS: ALCOHOL, BLOOD (SERUM) < 3 mg/dL (0-10)
[2024-07-08 13:07] LABS: HCG,QUANTITATIVE < 1 mIU/mL (0-6)
[2024-07-08 13:19] LABS: SARS-COV2 (COVID) ANTIGEN,FIA Negative (Negative)
[2024-07-08 18:19] VITALS: O2SAT 98
[2024-07-08] MEDS ORDERED: ZOLPIDEM TARTRATE 10 MG TABLET PO PRN (22:45)
[2024-07-09 03:16] VITALS: BP 114/73; PULSE 62; RESP 18; TEMP 97.4; O2SAT 100
[2024-07-09 08:21] VITALS: BP 122/68; PULSE 69; RESP 16; TEMP 98; O2SAT 97
[2024-07-09] MEDS: HALOPERIDOL 5 MG TABLET PO PRN (10:18)
[2024-07-09] MEDS: LORazepam 2 MG TABLET PO PRN (10:18)
[2024-07-09] MEDS ORDERED: GuaiFENesin/D-METHORPHAN [SUGAR-FREE] 200-20MG/10 ML SYRUP UDCUP PO PRN (10:30)
[2024-07-09] MEDS ORDERED: MAGNESIUM HYDROXIDE SUSPENSION 30 ML UDCUP PO PRN (10:30)
[2024-07-09] MEDS ORDERED: ALBUTEROL SULFATE HFA 90 MCG/PUFF 8 GM INHALER IH PRN (10:30)
[2024-07-09] MEDS ORDERED: CloNIDine HCL 0.1 MG TABLET PO PRN (10:30)
[2024-07-09] MEDS ORDERED: LOPERAMIDE HCL 2 MG CAPSULE PO PRN (10:30)
[2024-07-09] MEDS ORDERED: NICOTINE 14 MG/24 HOUR PATCH TD PRN (10:30)
[2024-07-09] MEDS ORDERED: IBUPROFEN 400 MG TABLET PO PRN (10:30)
[2024-07-09] MEDS ORDERED: PETROLATUM,WHITE 28 GM JELLY TP PRN (10:30)
[2024-07-09] MEDS ORDERED: MAG HYDROX/ALUMINUM HYD/SIMETH ES 30 ML SUSPENSION UDCUP PO PRN (10:30)
[2024-07-09] MEDS ORDERED: ONDANSETRON 4 MG TABLET PO PRN (10:30)
[2024-07-09] MEDS: RisperiDONE 3 MG TABLET PO SCH (16:35)
[2024-07-09] MEDS: LURASIDONE HCL 80 MG TABLET PO SCH (20:14)
[2024-07-09] MEDS: BENZTROPINE MESYLATE 2 MG TABLET PO SCH (20:14)
[2024-07-09 20:54] VITALS: BP 97/59; PULSE 57; RESP 16; TEMP 97; O2SAT 97
[2024-07-10 08:08] VITALS: BP 111/72; PULSE 94; RESP 16; TEMP 97; O2SAT 98
[2024-07-10] MEDS: BENZTROPINE MESYLATE 1 MG TABLET PO SCH (09:45)
[2024-07-10 20:24] VITALS: BP 102/71; PULSE 74; RESP 18; TEMP 98.7; O2SAT 100
[2024-07-11 08:46] VITALS: BP 106/71; PULSE 64; RESP 17; TEMP 99.1; O2SAT 96
[2024-07-11 09:46] LABS: CHOL/HDL RATIO 2.2 (3.9-5.7); THYROID STIMULATING HORMONE 1.07 uIU/mL (0.36-3.74)
[2024-07-11 10:01] LABS: HEMOGLOBIN A1C 4.5 % (3.8-5.6)
[2024-07-11 10:38] LABS: APPEARANCE,URINE CLEAR (CLEAR); BILIRUBIN,URINE NEGATIVE (NEGATIVE); COLOR,URINE YELLOW (YELLOW); GLUCOSE, URINE (UA) NEGATIVE (NEGATIVE); KETONES,URINE NEGATIVE (NEGATIVE); LEUKOCYTE ESTERASE ,URINE NEGATIVE (NEGATIVE); NITRATE,URINE NEGATIVE (NEGATIVE); OCCULT BLOOD,URINE LARGE (NEGATIVE); PH,URINE 5.5 (5.0-8.0); PH,URINE DRUG SCREEN 5.5 (5.0-8.0); PROTEIN,URINE 30-70 mg/dL (NEGATIVE); SPECIFIC GRAVITIY, URINE 1.029 (1.003-1.030); UROBILINOGEN,URINE <=1.0 mg/dL (<=1.0)
[2024-07-11 10:49] LABS: ALCOHOL, URINE DRUG SCREEN NEGATIVE (NEGATIVE); AMPHET/METH SCREEN,URINE NEGATIVE (NEGATIVE); BACTERIA,URINE None Seen /HPF (None Seen); BARBITURATE SCREEN, URINE NEGATIVE (NEGATIVE); BENZODIAZEPINES SCREEN,URINE NEGATIVE (NEGATIVE); CANNABINOID SCREEN,URINE NEGATIVE (NEGATIVE); COCAINE SCREEN,URINE NEGATIVE (NEGATIVE); METHADONE SCREEN, URINE NEGATIVE (NEGATIVE); OPIATE SCREEN,URINE NEGATIVE (NEGATIVE); PHENCYCLIDINE SCREEN,URINE NEGATIVE (NEGATIVE); RBC,URINE 0-2 /HPF (0-2); SQUAMOUS EPITHELIAL CELL,UR Few /LPF (None Seen); WBC,URINE None Seen /HPF (0-5)
[2024-07-11 20:14] VITALS: BP 106/72; PULSE 77; RESP 18; TEMP 97.1; O2SAT 98
[2024-07-12] MEDS: DOCUSATE SODIUM 100 MG CAPSULE PO PRN (08:13)
[2024-07-12 09:10] VITALS: BP 100/60; PULSE 64; RESP 17; TEMP 97; O2SAT 97
[2024-07-12 21:30] VITALS: BP 101/67; PULSE 72; RESP 16; TEMP 97; O2SAT 98
[2024-07-13 12:00] VITALS: BP 100/63; PULSE 62; RESP 17; TEMP 97.5; O2SAT 98
[2024-07-13 20:00] VITALS: BP 100/65; PULSE 87; RESP 17; TEMP 98.2; O2SAT 98
[2024-07-14 08:22] VITALS: BP 100/64; PULSE 80; RESP 16; TEMP 97.8; O2SAT 97
[2024-07-14 21:00] VITALS: BP 117/80; PULSE 72; RESP 17; TEMP 97.5; O2SAT 99
[2024-07-15 08:32] VITALS: BP 110/71; PULSE 71; RESP 19; TEMP 96.9; O2SAT 97
[2024-07-15 20:30] VITALS: BP 101/69; PULSE 81; RESP 17; TEMP 96.1; O2SAT 98
[2024-07-16 08:38] VITALS: BP 102/65; PULSE 73; RESP 18; TEMP 97.8; O2SAT 98
[2024-07-16] MEDS: INFLUENZA VIRUS VACCINE TVS (6MO+) 2024-25/PF 45 MCG/0.5 ML SYRINGE IM. ONE (19:34)
[2024-07-16 23:20] VITALS: BP 107/71; PULSE 68; RESP 16; TEMP 97.1; O2SAT 99
[2024-07-17 08:19] VITALS: BP 99/65; PULSE 84; RESP 16; TEMP 97.2; O2SAT 97
[2024-07-17 23:01] VITALS: BP 104/62; PULSE 78; RESP 18; TEMP 97.4; O2SAT 98
[2024-07-18 08:19] VITALS: BP 106/70; PULSE 83; RESP 18; TEMP 97.1; O2SAT 97
[2024-07-18 20:12] VITALS: BP 102/66; PULSE 76; RESP 18; TEMP 97.1; O2SAT 96
[2024-07-19 10:59] VITALS: BP 115/68; PULSE 75; RESP 18; TEMP 97.2; O2SAT 97
[2024-07-19 20:22] VITALS: BP 108/72; PULSE 74; RESP 18; TEMP 98; O2SAT 98
[2024-07-20 09:02] VITALS: BP 108/71; PULSE 70; RESP 16; TEMP 96.7; O2SAT 97
[2024-07-20 23:07] VITALS: BP 98/67; PULSE 74; RESP 18; TEMP 97.7; O2SAT 98
[2024-07-21 08:51] VITALS: BP 102/66; PULSE 66; RESP 18; TEMP 98; O2SAT 99
[2024-07-21 20:19] VITALS: BP 100/65; PULSE 66; RESP 18; TEMP 98.1; O2SAT 98
[2024-07-22 08:43] VITALS: BP 101/65; PULSE 81; RESP 16; TEMP 98.3; O2SAT 99
[2024-07-22 20:10] VITALS: BP 115/62; PULSE 67; RESP 18; TEMP 97.9
[2024-07-23 09:19] VITALS: BP 102/63; PULSE 75; RESP 16; TEMP 96; O2SAT 98
[2024-07-23 09:21] VITALS: BP 102/63; PULSE 75; RESP 16; TEMP 96; O2SAT 98
[2024-07-23 20:03] VITALS: BP 100/67; PULSE 77; RESP 17; TEMP 97.5
[2024-07-24 08:12] VITALS: BP 100/66; PULSE 79; RESP 16; TEMP 98; O2SAT 98
[2024-07-24 21:13] VITALS: BP 105/69; PULSE 69; RESP 17; TEMP 97.3; O2SAT 98
[2024-07-25 08:28] VITALS: BP 104/71; PULSE 76; RESP 17; TEMP 97; O2SAT 99
[2024-07-25 23:45] VITALS: BP 123/67; PULSE 86; RESP 18; TEMP 98
[2024-07-26 08:13] VITALS: BP 103/71; PULSE 83; RESP 16; TEMP 97.2; O2SAT 97
[2024-07-26 08:58] VITALS: RESP 17
[2024-07-26] MEDS: ACETAMINOPHEN 325 MG TABLET PO PRN (08:58)
[2024-07-26 09:58] VITALS: RESP 16
[2024-07-26 20:48] VITALS: BP 105/75; PULSE 85; RESP 17; TEMP 97.3
[2024-07-27 08:14] VITALS: BP 100/67; PULSE 68; RESP 16; TEMP 97.9; O2SAT 98
[2024-07-27 21:21] VITALS: BP 121/80; PULSE 66; RESP 17; TEMP 97.4; O2SAT 98
[2024-07-28 08:39] VITALS: BP 100/63; PULSE 71; RESP 16; TEMP 97.9; O2SAT 97
[2024-07-28] MEDS ORDERED: BENZ2TAB84 PO (10:21)
[2024-07-28] MEDS ORDERED: BENZ-247 PO (10:21)
== END 2024-07-28 17:24 | disposition home or self-care (01) | DRG 750 ==
LOC: EMS 12:08 → B3A 07-09 02:41
PROVIDERS: ADMIT Psychiatry & Neurology Child & Adolescent Psychiatry; ATTEND Psychiatry & Neurology Child & Adolescent Psychiatry
PROC: GZHZZZZ Group Psychotherapy (ICD-10-PCS; principal; 2024-07-10)
PROC: GZ56ZZZ Individual Psychotherapy, Supportive (ICD-10-PCS; 2024-07-10)
DX: F25.1 Schizoaffective disorder, depressive type (principal); R45.851 Suicidal ideations; E66.9 Obesity, unspecified; Z20.822 Contact with and (suspected) exposure to COVID-19; I10 Essential (primary) hypertension; R73.9 Hyperglycemia, unspecified; Z68.29 Body mass index [BMI] 29.0-29.9, adult; F15.10 Other stimulant abuse, uncomplicated
CPT/HCPCS: 80048; 80061; 80307; 81001; 83036; 84443; 84702; 85025; 90686; 99285; G0480

== ENCOUNTER 2025-03-19 19:37 | Emergency (ER) | payer MEDICAID ==
[~2025-03-19] VITALS: Ht 154.9 cm; Wt 56.8 kg
[~2025-03-19 19:37] MED LIST changes: +BENZ-247 PO; +BENZ2TAB84 PO
[2025-03-19 20:06] VITALS: BP 124/73; PULSE 69; RESP 16; TEMP 98.2; O2SAT 100
[2025-03-19 20:20] LABS: COVID AG,FIA SOURCE NASAL SWAB
[2025-03-19 20:21] LABS: EOSINOPHILS % (AUTO) 1.4 % (1.0-6.0); HEMATOCRIT 37.5 % (36-46); HEMOGLOBIN 13.2 g/dL (12.0-16.0); LYMPHOCYTES # (AUTO) 1.8 K/uL (1.0-4.8); LYMPHOCYTES % (AUTO) 38.9 % (22.0-44.0); MEAN CORPUSCULAR HEMOGLOBIN 32.4 pg (26.0-34.0); MEAN CORPUSCULAR HGB CONC 35.3 G/dL (31.0-37.0); MEAN CORPUSCULAR VOLUME 92 fL (80-100); MONOCYTES # (AUTO) 0.3 K/uL (0.1-1.0); MONOCYTES % (AUTO) 6.4 % (2.0-9.0); NEUTROPHILS # (AUTO) 2.4 K/uL (1.8-7.7); NEUTROPHILS % (AUTO) 52.3 % (40.0-70.0); PLATELET COUNT (AUTO) 215 K/uL (150-450); RED BLOOD CELL COUNT(AUTO) 4.08 MIL/uL (4.00-5.20); RED CELL DISTRIBUTION WIDTH 12.7 % (11.5-14.5); WHITE BLOOD COUNT (AUTO) 4.6 K/uL (4.5-11.0)
[2025-03-19 20:25] LABS: APPEARANCE,URINE CLEAR (CLEAR); BILIRUBIN,URINE NEGATIVE (NEGATIVE); COLOR,URINE YELLOW (YELLOW); GLUCOSE, URINE (UA) NEGATIVE (NEGATIVE); KETONES,URINE NEGATIVE (NEGATIVE); LEUKOCYTE ESTERASE ,URINE NEGATIVE (NEGATIVE); NITRATE,URINE NEGATIVE (NEGATIVE); OCCULT BLOOD,URINE TRACE (NEGATIVE); PROTEIN,URINE TRACE mg/dL (NEGATIVE); SPECIFIC GRAVITIY, URINE 1.031 (1.003-1.030)
[2025-03-19 20:30] LABS: ANION GAP 5 mmol/L (8-16); CALCIUM, TOTAL 8.9 mg/dL (8.8-10.5); CARBON DIOXIDE 29 mmol/L (22-29); CHLORIDE 106 mmol/L (98-107); GLOMERULAR FILTR. RATE CALC > 60 mL/min (>60); GLUCOSE,RANDOM 96 mg/dL (70-110); POTASSIUM 3.6 mmol/L (3.5-5.1); SODIUM SERUM 140 mmol/L (136-145); UREA NITROGEN, BLOOD 15 mg/dL (7-18)
[2025-03-19 20:31] LABS: ALCOHOL, URINE DRUG SCREEN NEGATIVE (NEGATIVE); AMPHET/METH SCREEN,URINE NEGATIVE (NEGATIVE); BARBITURATE SCREEN, URINE NEGATIVE (NEGATIVE); BENZODIAZEPINES SCREEN,URINE NEGATIVE (NEGATIVE); CANNABINOID SCREEN,URINE NEGATIVE (NEGATIVE); COCAINE SCREEN,URINE NEGATIVE (NEGATIVE); METHADONE SCREEN, URINE NEGATIVE (NEGATIVE); OPIATE SCREEN,URINE NEGATIVE (NEGATIVE); PHENCYCLIDINE SCREEN,URINE NEGATIVE (NEGATIVE)
[2025-03-19 20:52] LABS: SARS-COV2 (COVID) ANTIGEN,FIA Negative (Negative)
[2025-03-19 21:22] LABS: BACTERIA,URINE Few /HPF (None Seen); MUCUS,URINE Few LPF (None Seen); RBC,URINE 0-2 /HPF (0-2); SQUAMOUS EPITHELIAL CELL,UR Few /LPF (None Seen); WBC,URINE 0-2 /HPF (0-5)
== END 2025-03-20 05:02 | disposition home or self-care (01) ==
LOC: EMS 19:37
DX: F25.9 Schizoaffective disorder, unspecified (principal); F32.A Depression, unspecified; F41.9 Anxiety disorder, unspecified; F15.90 Other stimulant use, unspecified, uncomplicated; Z98.890 Other specified postprocedural states; Z79.899 Other long term (current) drug therapy; Z20.822 Contact with and (suspected) exposure to COVID-19
CPT/HCPCS: 99283; 87426; 80048; 81001; 85025; 36415; 80307; G0480

== ENCOUNTER 2025-03-31 07:08 | Emergency (ER) | payer MEDICAID ==
[~2025-03-31] VITALS: Ht 160 cm; Wt 52.3 kg
[2025-03-31 07:11] VITALS: TEMP 98.1
[2025-03-31 08:47] LABS: PLATELET COUNT (AUTO) 163 K/uL (150-450); RED BLOOD CELL COUNT(AUTO) 4.35 MIL/uL (4.00-5.20); RED CELL DISTRIBUTION WIDTH 12.7 % (11.5-14.5); WHITE BLOOD COUNT (AUTO) 3.9 K/uL (4.5-11.0)
[2025-03-31 08:54] LABS: CALCIUM, TOTAL 8.9 mg/dL (8.8-10.5); CREATININE 0.64 mg/dL (0.60-1.30); GLOMERULAR FILTR. RATE CALC > 60 mL/min (>60); GLUCOSE,RANDOM 91 mg/dL (70-110); SODIUM SERUM 142 mmol/L (136-145); UREA NITROGEN, BLOOD 10 mg/dL (7-18)
[2025-03-31 09:02] LABS: APPEARANCE,URINE CLEAR (CLEAR); GLUCOSE, URINE (UA) NEGATIVE (NEGATIVE); LEUKOCYTE ESTERASE ,URINE NEGATIVE (NEGATIVE); NITRATE,URINE NEGATIVE (NEGATIVE); OCCULT BLOOD,URINE NEGATIVE (NEGATIVE); PH,URINE DRUG SCREEN 5.5 (5.0-8.0); SPECIFIC GRAVITIY, URINE 1.009 (1.003-1.030)
[2025-03-31 09:10] LABS: AMPHET/METH SCREEN,URINE NEGATIVE (NEGATIVE); BARBITURATE SCREEN, URINE NEGATIVE (NEGATIVE); CANNABINOID SCREEN,URINE NEGATIVE (NEGATIVE); COCAINE SCREEN,URINE NEGATIVE (NEGATIVE); METHADONE SCREEN, URINE NEGATIVE (NEGATIVE)
[2025-03-31 09:11] LABS: ALCOHOL, URINE DRUG SCREEN NEGATIVE (NEGATIVE)
[2025-03-31 09:20] LABS: COVID AG,FIA SOURCE NASAL SWAB
[2025-03-31 09:45] VITALS: BP 101/65; PULSE 71; RESP 17; O2SAT 99
[2025-03-31 09:48] LABS: SARS-COV2 (COVID) ANTIGEN,FIA Negative (Negative)
== END 2025-03-31 11:07 | disposition home or self-care (01) ==
LOC: EMS 07:11
DX: F25.1 Schizoaffective disorder, depressive type (principal); F41.9 Anxiety disorder, unspecified; F32.A Depression, unspecified; F15.90 Other stimulant use, unspecified, uncomplicated; Z98.890 Other specified postprocedural states; Z79.899 Other long term (current) drug therapy; Z20.822 Contact with and (suspected) exposure to COVID-19
CPT/HCPCS: 99283; 87426; 80048; 81003; 85025; 36415; 80307; G0480